=== PATIENT | female | born 1935 | race Caucasian/White ===

== ENCOUNTER 2017-06-07 12:44 | Inpatient (IN) | payer MEDICARE ==
[~2017-06-07] VITALS: Ht 157.5 cm; Wt 114.3 kg
[~2017-06-07 12:44] MED LIST: ACTONEL150 MG PO; ADULT WAL-100 MG/5 M PO; ALLOPURINOL100 MG PO; AMLODIPINE BESYL5 MG PO; ATORVASTATIN CA10 MG PO; BISAC-EVAC10 MG PR; CALCIUM500 MG PO; CARAFATE1 GM/10 ML PO; COUMADIN4 MG PO; FERROUS SULFAT325 M1 PO; FOLIC ACID1 MG PO; GUAIFENESIN600 MG PO; IRON45 MG; K-DUR20 MEQ PO; LASIX40 MG PO; LISINOPRIL5 MG PO; LYRICA150 MG PO; METHOTREXATE2.5 MG PO; METOLAZONE5 MG PO; METOPROLOL SUCC50 MG PO; NORCO 5-325 TA1 EACH PO; NORCO 7.5-3251 EACH PO; PANTOPRAZOLE SO40 MG PO; POTASSIUM CHLO10 ME1 PO; PREDNISONE5 MG PO; XOPENEX0.63 MG/3 INH
[2017-06-07] MEDS ORDERED: SODIUM CHLORIDE 0.9% 500ML 500 ML IV STA (12:47)
[2017-06-07] MEDS ORDERED: ONDANSETRON HCL INJ 2 MG/ML VIAL IV STA (12:47)
--- OUTSIDE RECORDS SUMMARY | 2017-06-07 12:50 | XMS REPORT ---
Author Author [facility] Address Unknown Phone Unavailable Care Team Providers Care Coding Clerk Name Role Phone SUNITHA DRUMMOND Unavailable Unavailable Problems This patient has no known problems. Allergies, Adverse Reactions, Alerts This patient has no known allergies or adverse reactions. Medications This patient has no known medications. Results Test Description Test Time Test Comments Text Results Atomic Results Result Comments CHEST SINGLE (PORTABLE) [address] [address] Patient Name: VIVIANE SANTOS MR #: [id number] : 1935 Age/Sex: 81/F Req #: [id number] Adm Physician: Ordered by: KYRA BANKS MD Report #: [id number] Location: ER Room/Bed: ___ Procedure: [id number] DX/CHEST SINGLE (PORTABLE) Exam Date: 02/21/17 Exam Time: 1200 REPORT STATUS: Signed PROCEDURE : A single AP view of the chest. COMPARISON: [facility], DX , CHEST SINGLE (PORTABLE), 10/16/2013, 5:21. INDICATIONS: COUGH FINDINGS: Lines/tubes: None. Lungs: Lungs are hypoinflated. Minimal bibasilar atelectatic changes. No consolidation or pulmonary edema. Pleura: There is no pleural effusion or pneumothorax. Heart and mediastinum: Central vascular crowding due to low lung volumes. Cardiac silhouette is mildly prominent, likely partly due to AP projection. Tortuous aorta. Bones: No acute bony abnormality. IMPRESSION: 1. minimal bibasilar atelectatic changes and vascular crowding, due to low lung volumes Briseyda Fabian M.D. Dictated by: Briseyda Fabian M.D. on 02/21/2017 at 12:24 Electronically approved by: Briseyda Fabian M.D. on 02/21/2017 at 12:24 Dictated By: BRISEYDA FABIAN MD 1224 Transcribed By: LORENZA on 02/21/17 1224 COPY TO: KYRA BANKS MD
[2017-06-07] MEDS ORDERED: DIATRIZOATE MEGL/DIATRIZOA SOD 30 ML BTL PO ONE (13:01)
[2017-06-07 13:02] LABS: BASOPHILS % 0.3 % (0.0-1.0); EOSINOPHILS # (AUTO) 0.1 (0.0-0.4); EOSINOPHILS % 0.6 % (0.0-6.0); HEMATOCRIT 33.3 % (34.2-44.1); HEMOGLOBIN 10.4 g/dL (12.0-16.0); LYMPHOCYTES # (AUTO) 0.5 (1.0-3.2); LYMPHOCYTES % 3.5 % (18.0-39.1); MEAN CORPUSCULAR HEMOGLOBIN 26.2 pg (28-32); MEAN CORPUSCULAR HGB CONC 31.2 g/dL (31-35); MEAN CORPUSCULAR VOLUME 83.9 fL (81-99); MONOCYTES # (AUTO) 0.2 (0.2-0.8); MONOCYTES % 1.6 % (4.4-11.3); NEUTROPHILS # (AUTO) 13.2 (2.1-6.9); NEUTROPHILS % 93.4 % (38.7-80.0); PLATELET COUNT 236 x10e3/uL (140-360); RED BLOOD COUNT 3.97 x10e6/uL (3.6-5.1); RED CELL DISTRIBUTION WIDTH 20.4 % (11.7-14.4)
[2017-06-07 13:09] LABS: INR 2.72; PROTHROMBIN TIME 27.1 seconds (11.9-14.5)
[2017-06-07 13:10] LABS: PARTIAL THROMBOPLASTIN TIME 52.3 seconds (23.8-35.5)
[2017-06-07 13:19] LABS: ALBUMIN 2.7 g/dL (3.5-5.0); ALBUMIN/GLOBULIN RATIO 0.9 (0.8-2.0); ALKALINE PHOSPHATASE 74 IU/L (40-150); ANION GAP 14.6 mmol/L (8-16); BLOOD UREA NITROGEN 9 mg/dL (7-26); BUN/CREATININE RATIO 10 (6-25); CALCIUM 8.5 mg/dL (8.4-10.2); CARBON DIOXIDE 31 mmol/L (22-29); CHLORIDE 88 mmol/L (98-107); CREATINE KINASE 9 IU/L (29-168); CREATININE, SERUM 0.87 mg/dL (0.57-1.11); EST GLOMERULAR FILTRATION RATE > 60 ML/MIN (60-); GLUCOSE 131 mg/dL (74-118); LIPASE 8 U/L (8-78); POTASSIUM 3.6 mmol/L (3.5-5.1); SODIUM 130 mmol/L (136-145)
[2017-06-07 13:22] LABS: ALANINE AMINOTRANSFERASE < 6 IU/L (0-55)
--- NOTE | 2017-06-07 13:45 | Diagnostic Imaging Report ---
PROCEDURE: A single AP view of the chest. COMPARISON: Chest x-ray 02/21/2017. INDICATIONS: NAUSEA, COUGH FINDINGS: Lines/tubes: None. Lungs: The lungs are mildly hypo-inflated and clear. There is no evidence of pneumonia or pulmonary edema. Pleura: There is no pleural effusion or pneumothorax. Heart and mediastinum: The heart and the mediastinum are unremarkable. Atherosclerotic calcifications in the aorta. Bones: No acute bony abnormality. Partially visualized lower thoracic vertebroplasty material. IMPRESSION: No acute cardiopulmonary disease. Dictated by: Jabier Chen M.D. on 06/07/2017 at 13:44 Electronically approved by: Jabier Chen M.D. on 06/07/2017 at 13:44
[2017-06-07 13:46] LABS: BILIRUBIN,URINE NEGATIVE (NEGATIVE); CLARITY,URINE CLEAR (CLEAR); COLOR,URINE YELLOW (YELLOW); KETONES,URINE 1+ (NEGATIVE); LEUKOCYTE ESTERASE ,URINE NEGATIVE (NEGATIVE); NITRITE,URINE NEGATIVE (NEGATIVE); PROTEIN,URINE DIPSTICK NEGATIVE (NEGATIVE); URINE UROBILINOGEN 0.2 mg/dL (0.2 - 1)
[2017-06-07 14:09] LABS: BACTERIA,URINE MANY /HPF; EPITHELIAL CELLS,URINE MODERATE /LPF; WBC,URINE (MAN) 0-5 /HPF (0-5)
[2017-06-07] MEDS ORDERED: OSELTAMIVIR PHOSPHATE 75 MG CAP PO NR (14:45)
[2017-06-07] MEDS ORDERED: ONDANSETRON HCL INJ 2 MG/ML VIAL IV PRN (15:15)
--- NOTE | 2017-06-07 15:21 | Diagnostic Imaging Report ---
PROCEDURE: CT ABDOMEN AND PELVIS WITH CONTRAST TECHNIQUE: The abdomen and pelvis were scanned utilizing a multidetector helical scanner from the diaphragm to the lesser trochanter after the IV administration of 100 cc of Isovue 370 and the oral administration of Gastroview Coronal and sagittal multiplanar reformations were obtained. COMPARISON: None. INDICATIONS: Nausea, vomiting, diarrhea FOR 2 WEEKS FINDINGS: LOWER THORAX: Subsegmental atelectasis or fibrotic changes in the dependent portions of the lower lobes. Prominent epicardial fat without pleural or pericardial effusion.. HEPATOBILIARY: No focal hepatic lesion or intrahepatic biliary ductal dilatation. Phrygian cap of the gallbladder which is otherwise normal in appearance, without wall thickening or pericholecystic inflammatory change. No radiopaque gallstones. SPLEEN: No splenomegaly. PANCREAS: No focal masses or ductal dilatation. ADRENALS: No adrenal nodules. KIDNEYS/URETERS: No hydronephrosis, calculi, or gross mass lesion. Subcentimeter hypoattenuating lesion projects from the lower pole of left kidney, too small to further characterize though likely to represent a small cyst. PELVIC ORGANS/BLADDER: The urinary bladder is unremarkable. The uterine myometrium is markedly thinned with a distended, fluid-filled endometrial cavity. No adnexal mass. PERITONEUM / RETROPERITONEUM: No free air or fluid. LYMPH NODES: No pelvic sidewall, retroperitoneal, or mesenteric lymphadenopathy. VESSELS: There is atherosclerotic calcification of the abdominal aorta, major branch vessels, and iliac arterial systems. The abdominal aorta is non-aneurysmal. 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 IVC filter lies within the infrarenal IVC, just above the confluence, with strut extending into the right and left common iliac veins. GI TRACT: The large bowel shows no evidence of distention or wall thickening. There are diverticula scattered along the course of the descending and sigmoid colon without evidence of diverticulitis area the appendix is not identified and may have been removed. No right lower quadrant inflammation. 4 cm diverticulum projects from the fourth portion of the duodenum. No small bowel dilatation to suggest obstruction. BONES AND SOFT TISSUES: Diffuse osteopenia. Vertebroplasty cement within the L1 vertebral body. Mild age-indeterminate anterior compression fractures of T12, L2, and L3, each with approximately 20% loss of anterior height. Healed fracture deformities of the right lateral ninth and 10th ribs.. IMPRESSION: No acute intra-abdominal or pelvic CT abnormalities. Large bowel diverticulosis without evidence of diverticulitis. Atherosclerotic vascular disease with an incidentally noted 1.6 cm peripherally calcified splenic artery aneurysm. CT angiography of the abdomen is suggested in one year to assess for stability. Atrophic uterus with distended, fluid-filled endometrial cavity may be a consequence of cervical stenosis. Diffuse osteopenia with multiple age indeterminate, though likely chronic anterior compression fractures of the lower thoracic and upper lumbar spine as above. Dictated by: Michael Rivera M.D. on 06/07/2017 at 15:20 Electronically approved by: Michael Rivera M.D. on 06/07/2017 at 15:20
[2017-06-07] MEDS ORDERED: IOPAMIDOL 370 MG/ML 200 ML INFUS..BTL INJ ONE (15:39)
[2017-06-07] MEDS ORDERED: SODIUM CHLORIDE 0.9% 50ML 50 ML ONE (15:39)
[2017-06-07 19:50] VITALS: BP 128/58
[2017-06-07] MEDS: GUAIFENESIN 600 MG TAB PO SCH (20:52)
[2017-06-07] MEDS: GUAIFENESIN/DEXTROMETHORPHAN LIQD 5 ML UDC NG PRN (20:52)
[2017-06-07] MEDS: ATORVASTATIN 10 MG TAB PO SCH (21:04)
[2017-06-08] VITALS (8 sets, daily range): BP systolic 110–149; BP diastolic 57–107
[2017-06-08] MEDS: SODIUM CHLORIDE 0.9% 1000ML 1,000 ML IV SCH ×3 (01:20→22:00)
[2017-06-08] MEDS: GUAIFENESIN/DEXTROMETHORPHAN LIQD 5 ML UDC NG PRN (02:26)
[2017-06-08] MEDS: OSELTAMIVIR PHOSPHATE 75 MG CAP PO SCH ×3 (05:28→17:56)
[2017-06-08] MEDS: AMLODIPINE BESYLATE 5 MG TAB PO SCH ×2 (05:29→08:05)
[2017-06-08 06:52] LABS: ANION GAP 14.4 mmol/L (8-16); BLOOD UREA NITROGEN 10 mg/dL (7-26); BUN/CREATININE RATIO 12 (6-25); CALCIUM 8.4 mg/dL (8.4-10.2); CARBON DIOXIDE 31 mmol/L (22-29); CHLORIDE 90 mmol/L (98-107); CREATININE, SERUM 0.82 mg/dL (0.57-1.11); EST GLOMERULAR FILTRATION RATE > 60 ML/MIN (60-); GLUCOSE 98 mg/dL (74-118); POTASSIUM 3.4 mmol/L (3.5-5.1); SODIUM 132 mmol/L (136-145)
[2017-06-08] MEDS: FUROSEMIDE 40 MG TAB PO SCH ×2 (08:39→18:24)
[2017-06-08] MEDS: POTASSIUM CHLORIDE 10 MEQ TABCR PO SCH ×2 (08:39→18:24)
[2017-06-08] MEDS: GUAIFENESIN 600 MG TAB PO SCH ×2 (08:39→20:50)
[2017-06-08] MEDS: FERROUS SULFATE 325 MG TAB PO SCH ×2 (08:39→18:24)
[2017-06-08] MEDS: FOLIC ACID 1 MG TAB PO SCH (08:39)
[2017-06-08] MEDS: METOLAZONE 5 MG TAB PO SCH (08:40)
[2017-06-08] MEDS: PREGABALIN 75 MG CAP PO SCH ×2 (08:40→17:56)
[2017-06-08] MEDS: HYDROCODONE/APAP 5MG-325MG TAB PO SCH (08:40)
[2017-06-08] MEDS: OYST-CAL-D 500MG TABLET PO SCH (08:40)
[2017-06-08] MEDS: PANTOPRAZOLE SOD 40 MG TABEC PO SCH (08:40)
[2017-06-08] MEDS: PREDNISONE 5 MG TAB PO SCH (08:40)
[2017-06-08] MEDS: ALLOPURINOL 100 MG TAB PO SCH (08:40)
[2017-06-08] MEDS ORDERED: CALCIUM CARBONATE 500 MG PO SCH (09:00)
[2017-06-08] MEDS ORDERED: NON-FORMULARY MEDICATION (Pregabalin (Lyrica) 150 MG) PO SCH (09:00)
[2017-06-08] MEDS ORDERED: NON-FORMULARY MEDICATION (Warfarin Sodium (Coumadin) 4 MG) PO SCH (09:00)
[2017-06-08] MEDS ORDERED: HYDROCODONE/APAP 5MG-325MG TAB PO SCH (09:00)
[2017-06-08] MEDS ORDERED: DEXTROSE 50% SYRINGE 50 ML IV PRN (10:45)
[2017-06-08] MEDS: INSULIN LISPRO 100 UNIT/1 ML 3ML VIAL SQ SCH ×3 (11:30→20:50)
[2017-06-08] MEDS: LEVALBUTEROL HCL SOLN NEBU 0.63 MG/3 ML NEB INH SCH ×2 (13:00→20:40)
--- NOTE | 2017-06-08 13:40 | Diagnostic Imaging Report ---
PROCEDURE: CHEST SINGLE (PORTABLE) 1236 hrs. COMPARISON: Chest x-ray 06/07/17 INDICATIONS: COUGH FINDINGS: LUNGS: The lungs are diffusely hyperinflated consistent with small airways disease. Diffuse bronchial wall thickening is stable. Pulmonary vascular markings are normal. No mass or infiltrate. PLEURA: No effusions or pneumothorax. HEART \T\ MEDIASTINUM: The heart is normal in size. Aortic ectasia is stable. BONES \T\ SOFT TISSUES: Stable. CONCLUSION: No new cardiopulmonary process. Stable pulmonary hyperinflation and bronchial wall thickening suggestive of chronic bronchitis. Dictated by: Roman Oliveira M.D. on 06/08/2017 at 13:41 Electronically approved by: Roman Oliveira M.D. on 06/08/2017 at 13:41
[2017-06-08] MEDS: NYSTATIN SUSPENSION 5 ML UDC PO SCH ×2 (15:45→20:50)
[2017-06-08 18:04] LABS: INR 2.77; PROTHROMBIN TIME 27.5 seconds (11.9-14.5)
[2017-06-08] MEDS: WARFARIN SOD 2 MG TAB PO SCH (18:40)
[2017-06-08] MEDS: ATORVASTATIN 10 MG TAB PO SCH (20:50)
[2017-06-08] MEDS ORDERED: ATORVASTATIN 10 MG TAB PO SCH (21:00)
[2017-06-09] VITALS (8 sets, daily range): BP systolic 101–130; BP diastolic 58–64
[2017-06-09] MEDS: LEVALBUTEROL HCL SOLN NEBU 0.63 MG/3 ML NEB INH SCH ×4 (02:10→20:15)
[2017-06-09] MEDS: INSULIN LISPRO 100 UNIT/1 ML 3ML VIAL SQ SCH ×4 (07:30→20:50)
[2017-06-09] MEDS: GUAIFENESIN 600 MG TAB PO SCH ×2 (09:03→20:50)
[2017-06-09] MEDS: FERROUS SULFATE 325 MG TAB PO SCH ×2 (09:03→16:33)
[2017-06-09] MEDS: FOLIC ACID 1 MG TAB PO SCH (09:03)
[2017-06-09] MEDS: OYST-CAL-D 500MG TABLET PO SCH (09:08)
[2017-06-09] MEDS: FUROSEMIDE 40 MG TAB PO SCH ×2 (09:08→16:33)
[2017-06-09] MEDS: POTASSIUM CHLORIDE 10 MEQ TABCR PO SCH (09:08)
[2017-06-09] MEDS: PREDNISONE 5 MG TAB PO SCH (09:08)
[2017-06-09] MEDS: PREGABALIN 75 MG CAP PO SCH ×2 (09:08→16:33)
[2017-06-09] MEDS: OSELTAMIVIR PHOSPHATE 75 MG CAP PO SCH ×2 (09:08→16:33)
[2017-06-09] MEDS: PANTOPRAZOLE SOD 40 MG TABEC PO SCH (09:08)
[2017-06-09] MEDS: ALLOPURINOL 100 MG TAB PO SCH (09:09)
[2017-06-09] MEDS: METOLAZONE 5 MG TAB PO SCH (09:09)
[2017-06-09] MEDS: HYDROCODONE/APAP 5MG-325MG TAB PO SCH (09:28)
[2017-06-09] MEDS: NYSTATIN SUSPENSION 5 ML UDC PO SCH ×3 (09:28→20:50)
[2017-06-09] MEDS: AMLODIPINE BESYLATE 5 MG TAB PO SCH (09:28)
[2017-06-09 09:37] LABS: BASOPHILS % 0.1 % (0.0-1.0); EOSINOPHILS # (AUTO) 0.2 (0.0-0.4); HEMATOCRIT 32.4 % (34.2-44.1); LYMPHOCYTES # (AUTO) 0.7 (1.0-3.2); LYMPHOCYTES % 8.2 % (18.0-39.1); MEAN CORPUSCULAR HEMOGLOBIN 26.6 pg (28-32); MEAN CORPUSCULAR HGB CONC 30.9 g/dL (31-35); MEAN CORPUSCULAR VOLUME 86.2 fL (81-99); MONOCYTES # (AUTO) 0.5 (0.2-0.8); MONOCYTES % 6.2 % (4.4-11.3); NEUTROPHILS # (AUTO) 6.5 (2.1-6.9); NEUTROPHILS % 81.6 % (38.7-80.0); PLATELET COUNT 229 x10e3/uL (140-360); RED BLOOD COUNT 3.76 x10e6/uL (3.6-5.1); RED CELL DISTRIBUTION WIDTH 20.2 % (11.7-14.4)
[2017-06-09 09:46] LABS: INR 2.89; PROTHROMBIN TIME 28.4 seconds (11.9-14.5)
[2017-06-09 09:52] LABS: CALCIUM 8.1 mg/dL (8.4-10.2)
[2017-06-09 10:20] LABS: ANION GAP 16.5 mmol/L (8-16)
[2017-06-09 10:22] LABS: POTASSIUM 2.5 mmol/L (3.5-5.1)
[2017-06-09] MEDS ORDERED: POTASSIUM CHLORIDE 20 MEQ TAB CR PO STA (11:07)
[2017-06-09] MEDS: POTASSIUM CHLORIDE 20 MEQ TAB CR PO SCH ×5 (12:14→20:18)
[2017-06-09] MEDS: SODIUM CHLORIDE 0.9% 1000ML 1,000 ML IV SCH ×2 (13:18→16:33)
[2017-06-09] MEDS: WARFARIN SOD 2 MG TAB PO SCH (16:33)
[2017-06-09] MEDS: ATORVASTATIN 10 MG TAB PO SCH (20:50)
[2017-06-10] VITALS (8 sets, daily range): BP systolic 110–131; BP diastolic 53–84
[2017-06-10] MEDS: LEVALBUTEROL HCL SOLN NEBU 0.63 MG/3 ML NEB INH SCH ×3 (06:15→20:40)
[2017-06-10] MEDS: SODIUM CHLORIDE 0.9% 1000ML 1,000 ML IV SCH (06:23)
[2017-06-10 06:51] LABS: ANION GAP 11.8 mmol/L (8-16); CALCIUM 8.2 mg/dL (8.4-10.2); CREATININE, SERUM 1.02 mg/dL (0.57-1.11)
[2017-06-10 06:56] LABS: POTASSIUM 2.8 mmol/L (3.5-5.1)
[2017-06-10] MEDS: INSULIN LISPRO 100 UNIT/1 ML 3ML VIAL SQ SCH ×4 (07:30→20:58)
[2017-06-10] MEDS ORDERED: POTASSIUM CHLORIDE 10 MEQ TABCR PO SCH (09:00)
[2017-06-10] MEDS: AMLODIPINE BESYLATE 5 MG TAB PO SCH (09:58)
[2017-06-10] MEDS: GUAIFENESIN 600 MG TAB PO SCH ×2 (09:58→20:30)
[2017-06-10] MEDS: FOLIC ACID 1 MG TAB PO SCH (09:58)
[2017-06-10] MEDS: FUROSEMIDE 40 MG TAB PO SCH ×2 (09:58→17:07)
[2017-06-10] MEDS: FERROUS SULFATE 325 MG TAB PO SCH ×2 (09:58→17:09)
[2017-06-10] MEDS: PREGABALIN 75 MG CAP PO SCH ×2 (09:58→17:08)
[2017-06-10] MEDS: HYDROCODONE/APAP 5MG-325MG TAB PO SCH ×2 (09:58→21:11)
[2017-06-10] MEDS: METOLAZONE 5 MG TAB PO SCH (09:59)
[2017-06-10] MEDS: ALLOPURINOL 100 MG TAB PO SCH (09:59)
[2017-06-10] MEDS: OSELTAMIVIR PHOSPHATE 75 MG CAP PO SCH ×2 (09:59→17:08)
[2017-06-10] MEDS: PREDNISONE 5 MG TAB PO SCH (09:59)
[2017-06-10] MEDS: NYSTATIN SUSPENSION 5 ML UDC PO SCH ×3 (09:59→21:00)
[2017-06-10] MEDS: PANTOPRAZOLE SOD 40 MG TABEC PO SCH (09:59)
[2017-06-10] MEDS: OYST-CAL-D 500MG TABLET PO SCH (09:59)
[2017-06-10] MEDS: CEFEPIME HCL 1 GM VIAL IV SCH ×2 (10:00→20:58)
[2017-06-10] MEDS: POTASSIUM CHLORIDE 10 MEQ TABCR PO SCH ×3 (13:40→20:58)
[2017-06-10 16:34] LABS: INR 3.27; PROTHROMBIN TIME 31.3 seconds (11.9-14.5)
[2017-06-10] MEDS: WARFARIN SOD 2 MG TAB PO SCH (17:00)
[2017-06-10] MEDS: GUAIFENESIN/DEXTROMETHORPHAN LIQD 5 ML UDC NG PRN (17:18)
[2017-06-10] MEDS: ATORVASTATIN 10 MG TAB PO SCH (21:00)
[2017-06-11] VITALS: BP 113/55
[2017-06-11] MEDS: LEVALBUTEROL HCL SOLN NEBU 0.63 MG/3 ML NEB INH SCH ×4 (01:18→19:34)
[2017-06-11 04:00] VITALS: BP 126/60
[2017-06-11] MEDS: POTASSIUM CHLORIDE 10 MEQ TABCR PO SCH ×3 (04:38→17:36)
[2017-06-11] MEDS: INSULIN LISPRO 100 UNIT/1 ML 3ML VIAL SQ SCH ×4 (07:30→21:00)
[2017-06-11 07:44] LABS: BASOPHILS % 0.2 % (0.0-1.0); EOSINOPHILS # (AUTO) 0.8 (0.0-0.4); EOSINOPHILS % 5.9 % (0.0-6.0); HEMATOCRIT 34.4 % (34.2-44.1); HEMOGLOBIN 10.6 g/dL (12.0-16.0); LYMPHOCYTES # (AUTO) 0.7 (1.0-3.2); LYMPHOCYTES % 5.3 % (18.0-39.1); MEAN CORPUSCULAR HEMOGLOBIN 26.3 pg (28-32); MEAN CORPUSCULAR HGB CONC 30.8 g/dL (31-35); MEAN CORPUSCULAR VOLUME 85.4 fL (81-99); MONOCYTES # (AUTO) 0.7 (0.2-0.8); MONOCYTES % 5.6 % (4.4-11.3); NEUTROPHILS # (AUTO) 10.6 (2.1-6.9); NEUTROPHILS % 82.4 % (38.7-80.0); PLATELET COUNT 233 x10e3/uL (140-360); RED BLOOD COUNT 4.03 x10e6/uL (3.6-5.1); RED CELL DISTRIBUTION WIDTH 20.7 % (11.7-14.4)
[2017-06-11 07:54] LABS: INR 2.89; PROTHROMBIN TIME 28.4 seconds (11.9-14.5)
[2017-06-11 08:06] LABS: ANION GAP 16.6 mmol/L (8-16); CALCIUM 8.3 mg/dL (8.4-10.2); CREATININE, SERUM 1.04 mg/dL (0.57-1.11)
[2017-06-11 08:10] LABS: POTASSIUM 2.6 mmol/L (3.5-5.1)
[2017-06-11] MEDS ORDERED: POTASSIUM CHLORIDE 20 MEQ TAB CR PO NR (08:45)
[2017-06-11] MEDS ORDERED: MAGNESIUM SULFATE 2GM/50ML 100 ML IV ONE (09:00)
[2017-06-11] MEDS: FUROSEMIDE 40 MG TAB PO SCH ×2 (09:17→17:36)
[2017-06-11] MEDS: OSELTAMIVIR PHOSPHATE 75 MG CAP PO SCH ×2 (09:17→17:36)
[2017-06-11] MEDS: HYDROCODONE/APAP 5MG-325MG TAB PO SCH ×2 (09:17→21:37)
[2017-06-11] MEDS: PANTOPRAZOLE SOD 40 MG TABEC PO SCH (09:17)
[2017-06-11] MEDS: PREDNISONE 5 MG TAB PO SCH (09:17)
[2017-06-11] MEDS: OYST-CAL-D 500MG TABLET PO SCH (09:17)
[2017-06-11] MEDS: FOLIC ACID 1 MG TAB PO SCH (09:17)
[2017-06-11] MEDS: ALLOPURINOL 100 MG TAB PO SCH (09:17)
[2017-06-11] MEDS: METOLAZONE 5 MG TAB PO SCH (09:17)
[2017-06-11] MEDS: PREGABALIN 75 MG CAP PO SCH ×2 (09:17→17:36)
[2017-06-11] MEDS: AMLODIPINE BESYLATE 5 MG TAB PO SCH (09:17)
[2017-06-11] MEDS: CEFEPIME HCL 1 GM VIAL IV SCH ×2 (09:17→21:32)
[2017-06-11] MEDS: GUAIFENESIN 600 MG TAB PO SCH ×2 (09:17→21:32)
[2017-06-11] MEDS: NYSTATIN SUSPENSION 5 ML UDC PO SCH ×3 (09:17→21:32)
[2017-06-11] MEDS: FERROUS SULFATE 325 MG TAB PO SCH ×2 (09:17→17:36)
[2017-06-11] MEDS ORDERED: POTASSIUM CHLORIDE 20 MEQ TAB CR PO SCH (10:30)
[2017-06-11 11:17] VITALS: BP 140/80
[2017-06-11] MEDS ORDERED: SODIUM CHLORIDE 0.9% 250ML 250 ML ONE (11:38)
[2017-06-11] MEDS ORDERED: VANCOMYCIN 1GM/NS 250 ML 250 ML IV SCH (14:30)
[2017-06-11] MEDS ORDERED: FLUCONAZOLE 200 MG/100 ML 100 ML IV SCH (14:45)
[2017-06-11] MEDS: FLUCONAZOLE 200 MG/100 ML 100 ML IV SCH (16:00)
[2017-06-11] MEDS: VANCOMYCIN 1GM/NS 250 ML 250 ML IV SCH (16:00)
--- NOTE | 2017-06-11 16:33 | Diagnostic Imaging Report ---
EXAMINATION: CHEST SINGLE (PORTABLE) INDICATION: \S\influenza with bronchitis \S\[id number] \S\1535 \S\Y COMPARISON: Chest radiograph from 06/08/2017 FINDINGS: AP view TUBES and LINES: None. LUNGS: No lung volumes. Bibasilar atelectasis. There is no evidence of pneumonia or pulmonary edema. PLEURA: No pleural effusion or pneumothorax. HEART AND MEDIASTINUM: The cardiomediastinal silhouette is unremarkable. Mild atherosclerotic calcifications of the aortic arch. BONES AND SOFT TISSUES: No acute osseous lesion. Soft tissues are unremarkable. UPPER ABDOMEN: No free air under the diaphragm. IMPRESSION: Stable bibasilar atelectasis. Signed by: Dr. Sara Torrez M.D. on 06/11/2017 4:30 PM
[2017-06-11] MEDS ORDERED: POTASSIUM CHLORIDE 10 MEQ TABCR PO SCH (17:00)
[2017-06-11] MEDS: NYSTATIN 15 GM POWDER UD BTL TOP SCH (17:36)
[2017-06-11] MEDS: WARFARIN SOD 2 MG TAB PO SCH (17:36)
[2017-06-11 20:00] VITALS: BP 106/60
[2017-06-11] MEDS: ATORVASTATIN 10 MG TAB PO SCH (21:32)
[2017-06-12] VITALS: BP 104/53
[2017-06-12] MEDS: LEVALBUTEROL HCL SOLN NEBU 0.63 MG/3 ML NEB INH SCH ×4 (01:23→19:32)
[2017-06-12] MEDS: VANCOMYCIN 1GM/NS 250 ML 250 ML IV SCH ×2 (03:22→17:00)
[2017-06-12 04:00] VITALS: BP 172/66
[2017-06-12 06:09] VITALS: BP 113/58
[2017-06-12] MEDS: INSULIN LISPRO 100 UNIT/1 ML 3ML VIAL SQ SCH ×4 (07:30→21:00)
[2017-06-12 07:47] LABS: BASOPHILS % 0.2 % (0.0-1.0); EOSINOPHILS # (AUTO) 0.7 (0.0-0.4); EOSINOPHILS % 5.7 % (0.0-6.0); HEMATOCRIT 32.3 % (34.2-44.1); LYMPHOCYTES # (AUTO) 0.8 (1.0-3.2); LYMPHOCYTES % 6.5 % (18.0-39.1); MEAN CORPUSCULAR HEMOGLOBIN 26.7 pg (28-32); MEAN CORPUSCULAR VOLUME 86.1 fL (81-99); MONOCYTES # (AUTO) 0.8 (0.2-0.8); MONOCYTES % 7.1 % (4.4-11.3); NEUTROPHILS # (AUTO) 9.3 (2.1-6.9); NEUTROPHILS % 79.9 % (38.7-80.0); PLATELET COUNT 230 x10e3/uL (140-360); RED BLOOD COUNT 3.75 x10e6/uL (3.6-5.1); RED CELL DISTRIBUTION WIDTH 20.7 % (11.7-14.4)
[2017-06-12 08:13] LABS: ALBUMIN 2.7 g/dL (3.5-5.0); ALBUMIN/GLOBULIN RATIO 0.9 (0.8-2.0); ANION GAP 15.6 mmol/L (8-16); CALCIUM 8.6 mg/dL (8.4-10.2); CREATININE, SERUM 1.06 mg/dL (0.57-1.11)
[2017-06-12 08:17] LABS: POTASSIUM 2.6 mmol/L (3.5-5.1)
[2017-06-12] MEDS: GUAIFENESIN 600 MG TAB PO SCH ×2 (08:30→21:55)
[2017-06-12 09:10] LABS: INR 2.72; PROTHROMBIN TIME 27.1 seconds (11.9-14.5)
[2017-06-12] MEDS: OSELTAMIVIR PHOSPHATE 75 MG CAP PO SCH ×2 (09:34→17:27)
[2017-06-12] MEDS: PANTOPRAZOLE SOD 40 MG TABEC PO SCH (09:34)
[2017-06-12] MEDS: FERROUS SULFATE 325 MG TAB PO SCH ×2 (09:34→17:27)
[2017-06-12] MEDS: NYSTATIN SUSPENSION 5 ML UDC PO SCH ×3 (09:34→21:00)
[2017-06-12] MEDS: OYST-CAL-D 500MG TABLET PO SCH (09:34)
[2017-06-12] MEDS: NYSTATIN 15 GM POWDER UD BTL TOP SCH ×2 (09:34→17:27)
[2017-06-12] MEDS: HYDROCODONE/APAP 5MG-325MG TAB PO SCH (09:34)
[2017-06-12] MEDS: POTASSIUM CHLORIDE 10 MEQ TABCR PO SCH ×2 (09:34→17:00)
[2017-06-12] MEDS: PREGABALIN 75 MG CAP PO SCH ×2 (09:34→17:27)
[2017-06-12] MEDS: FUROSEMIDE 40 MG TAB PO SCH ×2 (09:34→17:27)
[2017-06-12] MEDS: CEFEPIME HCL 1 GM VIAL IV SCH ×2 (09:34→21:00)
[2017-06-12] MEDS: ALLOPURINOL 100 MG TAB PO SCH (09:34)
[2017-06-12] MEDS: FOLIC ACID 1 MG TAB PO SCH (09:34)
[2017-06-12] MEDS: AMLODIPINE BESYLATE 5 MG TAB PO SCH (09:34)
[2017-06-12] MEDS: PREDNISONE 5 MG TAB PO SCH (09:34)
[2017-06-12] MEDS: METOLAZONE 5 MG TAB PO SCH (09:34)
[2017-06-12] MEDS ORDERED: POTASSIUM CHLORIDE 20MEQ/100ML 200 ML IV ONE (10:15)
[2017-06-12] MEDS ORDERED: POTASSIUM CHLORIDE 20 MEQ TAB CR PO NR ×3 (10:30→17:00)
[2017-06-12] MEDS ORDERED: POTASSIUM CHLORIDE 20 MEQ in SODIUM CHLORIDE 0.9% 90 ML IV NR (12:00)
[2017-06-12 12:38] VITALS: BP 101/71
[2017-06-12] MEDS ORDERED: LORAZEPAM 0.5 MG TAB PO PRN (13:30)
[2017-06-12] MEDS ORDERED: POTASSIUM CHLORIDE 20 MEQ TAB CR PO STA (13:52)
[2017-06-12] MEDS ORDERED: KETOROLAC TROMETHAMINE 30 MG/ML VIAL IV NR (14:00)
[2017-06-12] MEDS: FLUCONAZOLE 200 MG/100 ML 100 ML IV SCH (16:00)
[2017-06-12] MEDS: WARFARIN SOD 2 MG TAB PO SCH (17:27)
[2017-06-12 17:40] VITALS: BP 105/59
[2017-06-12 20:00] VITALS: BP 92/55
[2017-06-12] MEDS: ATORVASTATIN 10 MG TAB PO SCH (21:00)
[2017-06-13] VITALS (8 sets, daily range): BP systolic 97–118; BP diastolic 52–72
[2017-06-13] MEDS: LEVALBUTEROL HCL SOLN NEBU 0.63 MG/3 ML NEB INH SCH ×4 (01:30→19:38)
[2017-06-13] MEDS: VANCOMYCIN 1GM/NS 250 ML 250 ML IV SCH ×2 (05:04→17:06)
[2017-06-13 06:43] LABS: BASOPHILS % 0.2 % (0.0-1.0); EOSINOPHILS % 6.3 % (0.0-6.0); HEMATOCRIT 30.2 % (34.2-44.1); HEMOGLOBIN 9.4 g/dL (12.0-16.0); LYMPHOCYTES # (AUTO) 0.9 (1.0-3.2); LYMPHOCYTES % 5.7 % (18.0-39.1); MEAN CORPUSCULAR HEMOGLOBIN 26.3 pg (28-32); MEAN CORPUSCULAR HGB CONC 31.1 g/dL (31-35); MEAN CORPUSCULAR VOLUME 84.6 fL (81-99); MONOCYTES # (AUTO) 1.3 (0.2-0.8); MONOCYTES % 8.2 % (4.4-11.3); NEUTROPHILS # (AUTO) 12.3 (2.1-6.9); NEUTROPHILS % 78.8 % (38.7-80.0); PLATELET COUNT 218 x10e3/uL (140-360); RED BLOOD COUNT 3.57 x10e6/uL (3.6-5.1); RED CELL DISTRIBUTION WIDTH 20.4 % (11.7-14.4)
[2017-06-13 07:13] LABS: ALBUMIN 2.5 g/dL (3.5-5.0); ALBUMIN/GLOBULIN RATIO 0.8 (0.8-2.0); ANION GAP 15.2 mmol/L (8-16); CALCIUM 8.7 mg/dL (8.4-10.2); CREATININE, SERUM 1.1 mg/dL (0.57-1.11); POTASSIUM 3.2 mmol/L (3.5-5.1)
[2017-06-13] MEDS: INSULIN LISPRO 100 UNIT/1 ML 3ML VIAL SQ SCH ×4 (07:30→21:00)
[2017-06-13 08:12] LABS: INR 3.26; PROTHROMBIN TIME 31.2 seconds (11.9-14.5)
[2017-06-13] MEDS: POTASSIUM CHLORIDE 10 MEQ TABCR PO SCH ×2 (08:56→17:45)
[2017-06-13] MEDS: FERROUS SULFATE 325 MG TAB PO SCH ×2 (08:56→17:45)
[2017-06-13] MEDS: PANTOPRAZOLE SOD 40 MG TABEC PO SCH (08:56)
[2017-06-13] MEDS: NYSTATIN SUSPENSION 5 ML UDC PO SCH ×3 (08:56→22:04)
[2017-06-13] MEDS: AMLODIPINE BESYLATE 5 MG TAB PO SCH (08:56)
[2017-06-13] MEDS: GUAIFENESIN 600 MG TAB PO SCH ×2 (08:56→22:04)
[2017-06-13] MEDS: OSELTAMIVIR PHOSPHATE 75 MG CAP PO SCH ×2 (08:56→17:45)
[2017-06-13] MEDS: ALLOPURINOL 100 MG TAB PO SCH (08:56)
[2017-06-13] MEDS: PREGABALIN 75 MG CAP PO SCH ×2 (08:56→17:45)
[2017-06-13] MEDS: FUROSEMIDE 40 MG TAB PO SCH ×2 (08:56→17:45)
[2017-06-13] MEDS: FOLIC ACID 1 MG TAB PO SCH (08:56)
[2017-06-13] MEDS: CEFEPIME HCL 1 GM VIAL IV SCH ×2 (08:56→22:04)
[2017-06-13] MEDS: OYST-CAL-D 500MG TABLET PO SCH (08:56)
[2017-06-13] MEDS: PREDNISONE 5 MG TAB PO SCH (08:56)
[2017-06-13] MEDS: METOLAZONE 5 MG TAB PO SCH (08:56)
[2017-06-13] MEDS: HYDROCODONE/APAP 5MG-325MG TAB PO SCH ×2 (08:57→09:00)
[2017-06-13] MEDS: NYSTATIN 15 GM POWDER UD BTL TOP SCH ×2 (08:57→17:45)
[2017-06-13] MEDS: FLUCONAZOLE 200 MG/100 ML 100 ML IV SCH (15:15)
[2017-06-13] MEDS: WARFARIN SOD 2 MG TAB PO SCH (17:45)
[2017-06-13] MEDS: ATORVASTATIN 10 MG TAB PO SCH (22:04)
[2017-06-14] VITALS: BP 96/58
[2017-06-14] MEDS: LEVALBUTEROL HCL SOLN NEBU 0.63 MG/3 ML NEB INH SCH ×3 (01:17→13:35)
[2017-06-14] MEDS: DIPHENHYDRAMINE HCL 25 MG CAP PO PRN ×2 (02:01→08:12)
[2017-06-14] MEDS: VANCOMYCIN 1GM/NS 250 ML 250 ML IV SCH (04:26)
[2017-06-14] MEDS: INSULIN LISPRO 100 UNIT/1 ML 3ML VIAL SQ SCH ×2 (07:30→11:30)
[2017-06-14 08:00] VITALS: BP 158/72
[2017-06-14] MEDS: FERROUS SULFATE 325 MG TAB PO SCH (08:12)
[2017-06-14] MEDS: CEFEPIME HCL 1 GM VIAL IV SCH (08:12)
[2017-06-14] MEDS: POTASSIUM CHLORIDE 10 MEQ TABCR PO SCH (08:12)
[2017-06-14] MEDS: PREGABALIN 75 MG CAP PO SCH (08:12)
[2017-06-14] MEDS: GUAIFENESIN 600 MG TAB PO SCH (08:12)
[2017-06-14] MEDS: FOLIC ACID 1 MG TAB PO SCH (08:12)
[2017-06-14] MEDS: NYSTATIN 15 GM POWDER UD BTL TOP SCH (08:12)
[2017-06-14] MEDS: OSELTAMIVIR PHOSPHATE 75 MG CAP PO SCH (08:12)
[2017-06-14] MEDS: FUROSEMIDE 40 MG TAB PO SCH (08:12)
[2017-06-14] MEDS: NYSTATIN SUSPENSION 5 ML UDC PO SCH (08:12)
[2017-06-14] MEDS: ALLOPURINOL 100 MG TAB PO SCH (08:12)
[2017-06-14] MEDS: PANTOPRAZOLE SOD 40 MG TABEC PO SCH (08:12)
[2017-06-14] MEDS: PREDNISONE 5 MG TAB PO SCH (08:12)
[2017-06-14] MEDS: AMLODIPINE BESYLATE 5 MG TAB PO SCH (08:12)
[2017-06-14] MEDS: OYST-CAL-D 500MG TABLET PO SCH (08:12)
[2017-06-14] MEDS: METOLAZONE 5 MG TAB PO SCH (08:12)
[2017-06-14 10:14] VITALS: BP 158/72
[2017-06-14 12:00] VITALS: BP 121/50
== END 2017-06-14 15:24 | DRG 871 ==
LOC: ER 12:44 → ERHOLD 17:04 → IMCU 18:23 → OBSVTOIN 06-10 08:56 → MED/SURG3 06-10 17:38
DX: A41.9 Sepsis, unspecified organism (principal); J11.00 Influenza due to unidentified influenza virus with unspecified type of pneumonia; I11.0 Hypertensive heart disease with heart failure; J18.9 Pneumonia, unspecified organism; Z68.42 Body mass index [BMI] 45.0-49.9, adult; N39.0 Urinary tract infection, site not specified; I50.9 Heart failure, unspecified; E66.01 Morbid (severe) obesity due to excess calories; E87.6 Hypokalemia; B96.20 Unspecified Escherichia coli [E. coli] as the cause of diseases classified elsewhere; Z86.718 Personal history of other venous thrombosis and embolism; Z79.01 Long term (current) use of anticoagulants
CPT/HCPCS: 36415; 71045; 74177; 80048; 80053; 80202; 81001; 82550; 82553; 82948; 83605; 83690; 83735; 83880; 84484; 85025; 85610; 85730; 87040; 87086; 87186; 87400; 93005; 94640; 99284; G0378; J0692; J1450; J1885; J2405; J3370; J3480; J7030; J7040; J7050; J7512; Q9967

== ENCOUNTER 2018-01-04 09:32 | Inpatient (IN) | payer MEDICARE ==
[~2018-01-04] VITALS: Ht 157.5 cm; Wt 92.8 kg
[2018-01-04] VITALS (20 sets, daily range): BP systolic 90–128; BP diastolic 41–66
[2018-01-04] MEDS ORDERED: ACETAMINOPHEN 1000 MG/100 ML IV STA (09:42)
[2018-01-04] MEDS ORDERED: IPRATROPIUM BROMIDE 0.02% 2.5 ML NEB NEB ONE ×2 (09:45→11:15)
[2018-01-04] MEDS ORDERED: SODIUM CHLORIDE 0.9% 1000ML 1,500 ML IV ONE (09:45)
[2018-01-04 10:03] LABS: BASOPHILS # (AUTO) 0.1 (0.0-0.1); BASOPHILS % 0.3 % (0.0-1.0); EOSINOPHILS # (AUTO) 0.3 (0.0-0.4); EOSINOPHILS % 1.4 % (0.0-6.0); HEMATOCRIT 35.1 % (34.2-44.1); LYMPHOCYTES # (AUTO) 1.4 (1.0-3.2); LYMPHOCYTES % 7.8 % (18.0-39.1); MEAN CORPUSCULAR HEMOGLOBIN 30.4 pg (28-32); MEAN CORPUSCULAR HGB CONC 31.3 g/dL (31-35); MONOCYTES # (AUTO) 1.4 (0.2-0.8); MONOCYTES % 8.1 % (4.4-11.3); NEUTROPHILS # (AUTO) 14.2 (2.1-6.9); NEUTROPHILS % 81.5 % (38.7-80.0); PLATELET COUNT 171 x10e3/uL (140-360); RED BLOOD COUNT 3.62 x10e6/uL (3.6-5.1); RED CELL DISTRIBUTION WIDTH 16.7 % (11.7-14.4)
[2018-01-04 10:20] LABS: ALANINE AMINOTRANSFERASE 19 IU/L (0-55); ALBUMIN 2.9 g/dL (3.5-5.0); ALBUMIN/GLOBULIN RATIO 0.9 (0.8-2.0); ALKALINE PHOSPHATASE 110 IU/L (40-150); ANION GAP 14.4 mmol/L (8-16); BLOOD UREA NITROGEN 9 mg/dL (7-26); BUN/CREATININE RATIO 11 (6-25); CALCIUM 9.6 mg/dL (8.4-10.2); CARBON DIOXIDE 31 mmol/L (22-29); CHLORIDE 96 mmol/L (98-107); CREATININE, SERUM 0.79 mg/dL (0.57-1.11); EST GLOMERULAR FILTRATION RATE > 60 ML/MIN (60-); GLUCOSE 115 mg/dL (74-118); MAGNESIUM 1.9 MG/DL (1.3-2.1); PHOSPHORUS 3.3 MG/DL (2.3-4.7); POTASSIUM 3.4 mmol/L (3.5-5.1); SODIUM 138 mmol/L (136-145)
[2018-01-04 10:26] LABS: CLARITY,URINE CLOUDY (CLEAR); COLOR,URINE AMBER (YELLOW); LEUKOCYTE ESTERASE ,URINE 1+ (NEGATIVE)
[2018-01-04 10:27] LABS: BILIRUBIN,URINE 1+ (NEGATIVE); KETONES,URINE TRACE (NEGATIVE); NITRITE,URINE NEGATIVE (NEGATIVE); PROTEIN,URINE DIPSTICK 1+ (NEGATIVE)
[2018-01-04 10:28] LABS: URINE UROBILINOGEN 1 mg/dL (0.2 - 1)
[2018-01-04 10:38] LABS: BACTERIA,URINE MODERATE /HPF; EPITHELIAL CELLS,URINE FEW /LPF; RBC,URINE 0-5 /HPF (0-5); WBC,URINE (MAN) 21-50 /HPF (0-5)
[2018-01-04 10:54] LABS: THYROID STIMULATING HORMONE 1.271 uIU/mL (0.350-4.940)
--- NOTE | 2018-01-04 10:55 | Diagnostic Imaging Report ---
PROCEDURE: A single AP view of the chest. COMPARISON: Chest radiograph 06/11/17. INDICATIONS: SHORTNESS OF BREATH, FEVER, HYPOXEMIA FINDINGS: Lines/tubes: None. Lungs: Low lung volumes. Patchy opacities are present at the left lung base. Mild bilateral interstitial and perihilar opacity. Pleura: There is no pleural effusion or pneumothorax. Heart and mediastinum: The cardiomediastinal silhouette is unchanged. Atherosclerotic calcification of the aortic arch. Bones: No acute bony abnormality. IMPRESSION: Patchy left basilar opacity, which could represent pneumonia or atelectasis in the appropriate clinical context. Follow-up chest radiograph to resolution in 6-8 weeks is suggested. Low lung volumes, cannot exclude mild interstitial edema. Dictated by: TERRI RIVERA M.D. on 01/04/2018 at 11:03 Electronically approved by: TERRI RIVERA M.D. on 01/04/2018 at 11:03
[2018-01-04] MEDS: CEFEPIME HCL 1 GM VIAL IV SCH ×2 (11:20→21:08)
[2018-01-04] MEDS: VANCOMYCIN 1GM/NS 250 ML 250 ML IV SCH ×2 (11:53→21:15)
[2018-01-04] MEDS ORDERED: SODIUM CHLORIDE FLUSH 10 ML SYR INJ PRN (12:00)
[2018-01-04 12:14] LABS: ABG HCO3 33 mmol/L (23-28); ABG PCO2 63 mmHg (41-51); ABG PH 7.33 (7.31-7.41); ABG PO2 296 mmHg (80-105)
[2018-01-04] MEDS: IPRATROPIUM BROMIDE 0.02% 2.5 ML NEB NEB SCH ×3 (13:40→19:25)
[2018-01-04] MEDS ORDERED: DOCUSATE SODIU100 M1 PO (14:36)
[2018-01-04] MEDS ORDERED: LACTULOSE20 GM/30 M PO (14:40)
[2018-01-04] MEDS ORDERED: TEGRETOL200 MG PO (14:44)
[2018-01-04] MEDS ORDERED: ZOFRAN ODT4 MG PO (14:45)
[2018-01-04] MEDS ORDERED: ONDANSETRON HCL 4 MG ORAL DISINTEGRATING TAB PO PRN (15:30)
[2018-01-04] MEDS ORDERED: LACTULOSE SYRUP 20 GM/30 ML UDC PO PRN (15:30)
[2018-01-04] MEDS ORDERED: NON-FORMULARY MEDICATION (Docusate Sodium 100 MG) PO SCH (15:30)
[2018-01-04] MEDS ORDERED: DOCUSATE SODIUM 100 MG CAP PO PRN (15:45)
[2018-01-04] MEDS: FERROUS SULFATE 325 MG TAB PO SCH (16:41)
[2018-01-04] MEDS: GUAIFENESIN 600 MG TAB PO SCH (16:41)
[2018-01-04] MEDS: FAMOTIDINE 20 MG/2 ML VIAL IV SCH (16:41)
[2018-01-04] MEDS: CARBAMAZEPINE 200 MG TAB PO SCH (16:41)
[2018-01-04 17:08] LABS: INR 1.85; PROTHROMBIN TIME 22.8 seconds (11.9-14.5)
[2018-01-04] MEDS ORDERED: WARFARIN SOD 3 MG TAB PO SCH (17:30)
[2018-01-04] MEDS: WARFARIN SOD 2 MG TAB PO SCH (17:57)
[2018-01-04] MEDS: ENOXAPARIN SOD INJ 40 MG/0.4 ML SYR SC SCH (17:57)
[2018-01-04] MEDS: WARFARIN SOD 5 MG TAB PO SCH (17:58)
[2018-01-04] MEDS: ATORVASTATIN 10 MG TAB PO SCH (21:08)
[2018-01-04] MEDS: DOCUSATE SODIUM 100 MG CAP PO SCH (21:08)
[2018-01-05] VITALS (9 sets, daily range): BP systolic 94–124; BP diastolic 52–61
[2018-01-05] MEDS: IPRATROPIUM BROMIDE 0.02% 2.5 ML NEB NEB SCH ×4 (01:00→19:20)
[2018-01-05] MEDS: CEFEPIME HCL 1 GM VIAL IV SCH ×3 (04:23→20:15)
[2018-01-05] MEDS: GUAIFENESIN 600 MG TAB PO SCH ×2 (04:23→16:27)
[2018-01-05 05:03] LABS: BASOPHILS % 0.2 % (0.0-1.0); EOSINOPHILS # (AUTO) 0.3 (0.0-0.4); EOSINOPHILS % 2.1 % (0.0-6.0); HEMOGLOBIN 9.2 g/dL (12.0-16.0); LYMPHOCYTES # (AUTO) 1.3 (1.0-3.2); LYMPHOCYTES % 8.9 % (18.0-39.1); MEAN CORPUSCULAR HEMOGLOBIN 29.9 pg (28-32); MEAN CORPUSCULAR HGB CONC 30.7 g/dL (31-35); MEAN CORPUSCULAR VOLUME 97.4 fL (81-99); MONOCYTES # (AUTO) 1.4 (0.2-0.8); MONOCYTES % 9.2 % (4.4-11.3); NEUTROPHILS # (AUTO) 11.9 (2.1-6.9); NEUTROPHILS % 79.1 % (38.7-80.0); PLATELET COUNT 151 x10e3/uL (140-360); RED BLOOD COUNT 3.08 x10e6/uL (3.6-5.1); RED CELL DISTRIBUTION WIDTH 16.6 % (11.7-14.4)
[2018-01-05 05:30] LABS: ANION GAP 13.7 mmol/L (8-16); BLOOD UREA NITROGEN 9 mg/dL (7-26); BUN/CREATININE RATIO 13 (6-25); CALCIUM 8.6 mg/dL (8.4-10.2); CARBON DIOXIDE 29 mmol/L (22-29); CHLORIDE 100 mmol/L (98-107); EST GLOMERULAR FILTRATION RATE > 60 ML/MIN (60-); GLUCOSE 98 mg/dL (74-118); POTASSIUM 3.7 mmol/L (3.5-5.1); SODIUM 139 mmol/L (136-145)
--- NOTE | 2018-01-05 06:43 | Diagnostic Imaging Report ---
EXAM: CHEST SINGLE (PORTABLE), AP 1 view INDICATION: Pneumonia COMPARISON: AP view of the chest at January 05, 2018 FINDINGS: LINES/TUBES: None LUNGS: No consolidations or edema. Stable mild bibasilar atelectasis. PLEURA: No effusions or pneumothorax. HEART AND MEDIASTINUM: Stable appearance. BONES AND SOFT TISSUES: No acute findings. IMPRESSION: No interval change. Signed by: Dr. Lorri Yeager M.D. on 01/05/2018 6:39 AM
[2018-01-05] MEDS ORDERED: CALCIUM CARBONATE 500 MG PO SCH (09:00)
[2018-01-05] MEDS: DOCUSATE SODIUM 100 MG CAP PO SCH ×2 (09:00→20:30)
[2018-01-05] MEDS: POTASSIUM CHLORIDE 10MEQ EA PO SCH (09:00)
[2018-01-05] MEDS: PANTOPRAZOLE SOD 40 MG TABEC PO SCH (09:00)
[2018-01-05] MEDS: FOLIC ACID 1 MG TAB PO SCH (09:00)
[2018-01-05] MEDS: FAMOTIDINE 20 MG/2 ML VIAL IV SCH ×2 (09:00→17:30)
[2018-01-05] MEDS: ENOXAPARIN SOD INJ 40 MG/0.4 ML SYR SC SCH (09:00)
[2018-01-05] MEDS: FUROSEMIDE 40 MG TAB PO SCH (09:00)
[2018-01-05] MEDS: CARBAMAZEPINE 200 MG TAB PO SCH ×2 (09:00→17:29)
[2018-01-05] MEDS: OYST-CAL-D 500MG TABLET PO SCH (09:00)
[2018-01-05] MEDS: FERROUS SULFATE 325 MG TAB PO SCH ×2 (09:00→17:28)
[2018-01-05] MEDS: ALLOPURINOL 100 MG TAB PO SCH (09:00)
[2018-01-05] MEDS: AMLODIPINE BESYLATE 5 MG TAB PO SCH (09:00)
[2018-01-05] MEDS: PREDNISONE 5 MG TAB PO SCH (09:00)
--- NOTE | 2018-01-05 09:16 | Consultation ---
DATE OF CONSULTATION: January 05, 2018 CARDIOLOGY CONSULTATION REQUESTING PHYSICIAN: Dr. Srivastava REASON FOR CONSULTATION: Paroxysmal atrial fibrillation. HISTORY OF PRESENT ILLNESS: Ms. Medel is an 82-year-old lady with past medical history as listed below. She presented with complaints of shortness of breath and fever. Patient reportedly was getting a little short-winded and had some cough, gradually got worse. Patient states that she also has mild cough. Denies any chest pain or palpitations. Patient was noted to be in paroxysmal atrial fibrillation, so I was consulted. She states she takes some blood thinners at home but does not recall the name. REVIEW OF SYMPTOMS CONSTITUTIONAL: Has some fatigue and weakness. HEENT: No headache, blurring of vision, seizures or syncope. CARDIOVASCULAR: No chest pain. Had dyspnea. No orthopnea or PND. RESPIRATORY: Had some cough and fever. GI: No abdominal pain, vomiting or diarrhea. : No dysuria, frequency or incontinence. ALLERGIES: ALBUTEROL, CODEINE. MEDICATIONS: See list. PAST MEDICAL HISTORY 1. History of hypertension. 2. History of paroxysmal atrial fibrillation. 3. History of diabetes mellitus. 4. History of depression and anxiety. 5. History of rheumatoid arthritis. 6. History of DVT. 7. History of PE. 8. History of CHF. 9. History of GERD. 10. History of osteoporosis. SOCIAL HISTORY: Does not smoke or drink. FAMILY HISTORY: Noncontributory. PHYSICAL EXAMINATION GENERAL: Obese lady, alert, not in any obvious distress. VITALS: Heart rate is 86. Blood pressure is 123/58. Respiratory rate is 18. HEENT: Atraumatic. NECK: No JVD, bruit, thyromegaly, lymphadenopathy. CARDIOVASCULAR: First and second heart sounds heard. A 2/6 systolic murmur heard at the left sternal border. CHEST: Decreased air entry at the bases. No adventitious sounds appreciated. ABDOMEN: Obese, nontender. EXTREMITIES: There is 2+ edema. LABS: WBC is 15.0. Hemoglobin 9.2, hematocrit 30, platelets 151. Sodium is 139, potassium 3.7, chloride 100, BUN 9, creatinine 0.7. Glucose is 98. AST 18, ALT 99, alk phos 110. BNP is 77. TSH is 1.2. CHEST X-RAY: Patchy left basal opacity, which could represent pneumonia or atelectasis. IMPRESSION 1. Pneumonia. 2. Paroxysmal atrial fibrillation. 3. History of hypertension. 4. History of diabetes mellitus. 5. History of depression. 6. History of deep venous thrombosis and pulmonary embolism. 7. History of hypothyroidism. PLAN 1. The patient had paroxysmal atrial fibrillation and is back in sinus rhythm. 2. Patient was taking warfarin, can continue the same. 3. Keep INR between 2 and 3. 4. Continue with antibiotics. 5. Get echocardiogram to assess LV function and valvular function. 6. Patient's BNP is normal. She has leg edema and is on warfarin. Can continue the same. 7. Further cardiac workup depending on clinical course. 8. I discussed my impression and plan of management with the patient. As always, I appreciate and thank you very much for your referrals. Job#: [id number]
[2018-01-05] MEDS: VANCOMYCIN 1GM/NS 250 ML 250 ML IV SCH ×2 (10:15→20:30)
--- NOTE | 2018-01-05 12:43 | Consultation ---
DATE OF CONSULTATION: January 04, 2018 PULMONARY MEDICINE CONSULT REFERRING PHYSICIAN: Dr. Srivastava. REASON FOR REFERRAL: Respiratory failure. HISTORY: Mrs. Medel is a pleasant 82-year-old female with acute respiratory failure. Patient with onset x1 day. Progression was significant of worsening. Patient without any sick contacts definitely known. Patient came to the emergency room after she was having progressive shortness of breath that was unresponsive to initial remedies at her [facility] facility. In the emergency room she had 101.7 temperature maximum. Urinalysis with 25-50 white blood cells. Chest x-ray with left basilar opacity but low lung volumes as well. At this point patient also with a white count of 17,000. Due to work of breathing, she was given emergency BiPAP. She was admitted to the ICU. PAST MEDICAL HISTORY: CHF, GERD, DVT, thyroid abnormality, diabetes, hypertension. She has an IVC filter, atrial fibrillation, nonambulatory status for 5 years reportedly. MEDICINES: Medicine list is reviewed per the electronic record. In the hospital patient received cefepime and vancomycin already. ALLERGIES: ALBUTEROL, CODEINE, FAINTED. SOCIAL HISTORY: No smoking, no drinking, no drugs. Patient lives in [facility]. FAMILY HISTORY: Noncontributory to this. REVIEW OF SYSTEMS: Cannot get reliably. She is on respiratory support device. PHYSICAL EXAMINATION VITAL SIGNS: Afebrile right now on my exam, improved from before, vital signs semi-stable as she is using accessory muscles to breathe on BiPAP. HEENT: Normocephalic, atraumatic. NECK: Supple. Throat midline. LUNGS: Bilateral air entry is moderate, a few rhonchi. CARDIOVASCULAR: S1 and S2. No murmurs, rubs or gallops. ABDOMINAL: Soft, nontender. EXTREMITIES: No clubbing, no cyanosis. There is lymphedema in the legs. INTEGUMENT: No rash, no purpura. LABS: Hematocrit 35, white count 15, platelets 171. Potassium 3.4, BUN of 9, creatinine 0.8, bicarbonate 31. Other labs include INR of 2.26, albumin 2.9, total protein 6.3. IMPRESSION AND PLAN 1. Acute respiratory failure, bilateral positive airway pressure salvage. 2. Chronic weakness and poor mobility/debility. 3. Urinary tract infection. 4. Pneumonia. 5. Fever consistent with severe sepsis. 6. Hypoalbuminemia. 7. Low total protein. 8. Elevated international normalized ratio, warfarin toxicity plus or minus disseminated intravascular coagulation. 9. History of congestive heart failure, gastroesophageal reflux disease, deep vein thrombosis status post inferior vena cava filter, thyroid abnormality, diabetes, hypertension. Continue weaning BiPAP. Over the next 2 hours, we will wean the patient to nasal cannula oxygen. IV antibiotics should be continued. We will follow vancomycin and consider checking troughs as needed. Patient as well will have restorative care and prevention of decubitus ulcers. As she improves, will have her diuresed as much as possible. Pulmonary hypertension seems as a real possibility; so, will reevaluate her as she gets better. Thank you very much, Dr. Srivastava, for allowing me to participate in the care of your patient. Do not hesitate to contact me if I can help in any way. Job#: [id number] NORY
[2018-01-05] MEDS ORDERED: METHYLPREDNISOLONE SOD SUCC 125 MG/2ML VIAL IV ONE (13:15)
--- NOTE | 2018-01-05 13:33 | Progress Note ---
DATE: January 05, 2018 PULMONARY MEDICINE PROGRESS NOTE SUBJECTIVE: Ms. Medel was seen and examined at the bedside. She was weaned off BiPAP early yesterday. She is on 3 liters per minute by nasal cannula right now. The patient currently has 96% oxygen saturation. She ate about 50% of her meals. No bowel movement yet. REVIEW OF SYSTEMS: No headache. No rash. PHYSICAL EXAMINATION VITALS: Afebrile. Vital signs noted per electronic record. GENERAL: No acute distress. Alert, calm, slightly sleepy. HEENT: Normocephalic, atraumatic. NECK: Supple. Throat midline. LUNGS: Bilateral air entry is good, mild to moderate wheezing, a few rhonchi. CARDIOVASCULAR: S1 and S2. No murmurs, rubs or gallops. ABDOMEN: Soft, nontender. EXTREMITIES: No clubbing, no cyanosis. There is stable lymphedema, 2+ edema. INTEGUMENT: No rash, no purpura. LABS: BUN 9, 0.7 creatinine, 50 white count, 30 hematocrit. IMPRESSION AND PLAN 1. Acute respiratory failure, status post BiPAP salvage, now off BiPAP. 2. Acute pneumonia. 3. Urinary tract infection. 4. Wheezing, treat for exacerbation of asthma. 5. Associated lymphedema/fluid overload. 6. Atrial fibrillation with complicated run of rapid ventricular rate this morning. 7. Moderate protein-calorie malnutrition. The patient is still on oxygen and needs weaning as tolerated. She needs a lot of aggressive therapy. Continue additional steroids, and we will give her a boost today. Bronchodilators as needed. Resume anticoagulation as safe. INR is less toxic today. [facility] referral is made, and this is reasonable. Follow up antibiotic levels. Job#: [id number]
[2018-01-05] MEDS: WARFARIN SOD 2 MG TAB PO SCH (17:29)
[2018-01-05] MEDS: WARFARIN SOD 5 MG TAB PO SCH (17:29)
[2018-01-05] MEDS ORDERED: ACETAMINOPHEN 325 MG TAB PO PRN (19:30)
[2018-01-05] MEDS: ATORVASTATIN 10 MG TAB PO SCH (20:30)
[2018-01-06 00:11] VITALS: BP 116/55
[2018-01-06] MEDS: IPRATROPIUM BROMIDE 0.02% 2.5 ML NEB NEB SCH ×3 (00:20→13:28)
[2018-01-06] MEDS: GUAIFENESIN 600 MG TAB PO SCH ×2 (02:52→16:08)
[2018-01-06 04:38] LABS: BASOPHILS % 0.1 % (0.0-1.0); HEMATOCRIT 30.9 % (34.2-44.1); HEMOGLOBIN 9.7 g/dL (12.0-16.0); LYMPHOCYTES # (AUTO) 0.9 (1.0-3.2); LYMPHOCYTES % 6.3 % (18.0-39.1); MEAN CORPUSCULAR HEMOGLOBIN 29.9 pg (28-32); MEAN CORPUSCULAR HGB CONC 31.4 g/dL (31-35); MEAN CORPUSCULAR VOLUME 95.4 fL (81-99); MONOCYTES # (AUTO) 0.7 (0.2-0.8); MONOCYTES % 4.8 % (4.4-11.3); NEUTROPHILS % 88.1 % (38.7-80.0); PLATELET COUNT 177 x10e3/uL (140-360); RED BLOOD COUNT 3.24 x10e6/uL (3.6-5.1); RED CELL DISTRIBUTION WIDTH 15.9 % (11.7-14.4)
[2018-01-06 04:41] VITALS: BP 129/60
[2018-01-06 04:53] LABS: INR 2.16; PROTHROMBIN TIME 25.7 seconds (11.9-14.5)
[2018-01-06 05:04] LABS: BLOOD UREA NITROGEN 13 mg/dL (7-26); BUN/CREATININE RATIO 17 (6-25); CALCIUM 8.9 mg/dL (8.4-10.2); CARBON DIOXIDE 26 mmol/L (22-29); CHLORIDE 102 mmol/L (98-107); CREATININE, SERUM 0.77 mg/dL (0.57-1.11); EST GLOMERULAR FILTRATION RATE > 60 ML/MIN (60-); GLUCOSE 140 mg/dL (74-118); SODIUM 138 mmol/L (136-145)
[2018-01-06] MEDS: CEFEPIME HCL 1 GM VIAL IV SCH ×2 (05:24→12:59)
[2018-01-06 07:28] VITALS: BP 132/57
[2018-01-06 07:33] VITALS: BP 132/57
[2018-01-06] MEDS ORDERED: FUROSEMIDE INJ 10 MG/ML 4 ML VIAL IV NR (09:00)
[2018-01-06] MEDS: FERROUS SULFATE 325 MG TAB PO SCH ×2 (10:47→16:08)
[2018-01-06] MEDS: FAMOTIDINE 20 MG/2 ML VIAL IV SCH ×2 (10:47→16:08)
[2018-01-06] MEDS: AMLODIPINE BESYLATE 5 MG TAB PO SCH (10:47)
[2018-01-06] MEDS: PANTOPRAZOLE SOD 40 MG TABEC PO SCH (10:47)
[2018-01-06] MEDS: PREDNISONE 5 MG TAB PO SCH (10:47)
[2018-01-06] MEDS: ENOXAPARIN SOD INJ 40 MG/0.4 ML SYR SC SCH (10:47)
[2018-01-06] MEDS: ALLOPURINOL 100 MG TAB PO SCH (10:47)
[2018-01-06] MEDS: POTASSIUM CHLORIDE 10MEQ EA PO SCH (10:47)
[2018-01-06] MEDS: FUROSEMIDE 40 MG TAB PO SCH (10:47)
[2018-01-06] MEDS: VANCOMYCIN 1GM/NS 250 ML 250 ML IV SCH (10:47)
[2018-01-06] MEDS: FOLIC ACID 1 MG TAB PO SCH (10:47)
[2018-01-06] MEDS: DOCUSATE SODIUM 100 MG CAP PO SCH (10:47)
[2018-01-06] MEDS: OYST-CAL-D 500MG TABLET PO SCH (10:47)
[2018-01-06] MEDS: CARBAMAZEPINE 200 MG TAB PO SCH ×2 (10:47→16:08)
[2018-01-06 11:23] VITALS: BP 109/54
--- NOTE | 2018-01-06 13:14 | Progress Note ---
DATE: January 06, 2018 PULMONARY MEDICINE PROGRESS NOTE SUBJECTIVE: Mrs. Medel was seen and examined at bedside. She continues to have slow progress, 90% oxygen saturation, 3 liters per minute by nasal cannula. Patient is awake and bedbound. She is starting to eat although her dietary intake is still subpar. No longer using BiPAP. REVIEW OF SYSTEMS: No headaches, no rash. OBJECTIVE VITAL SIGNS: Afebrile. Vital signs noted per electronic record. GENERALLY: No acute distress, alert, weak but calm in bed. HEENT: Normocephalic, atraumatic. NECK: Supple. Throat midline. LUNGS: Bilateral air entry, decreased breath sounds in the base, a few rales, a few rhonchi. CARDIOVASCULAR: S1 and S2. No murmurs, rubs or gallops. ABDOMINAL: Soft, nontender. EXTREMITIES: No clubbing, no cyanosis. There is still the lymphedema, 2 to 3+ edema in the legs. INTEGUMENT: No rash. No purpura. LABS: White count 14, hematocrit 31, platelets 167. Potassium 4.0, bicarbonate 26, BUN 13, creatinine 0.8. BNP is 157. IMPRESSION AND PLAN 1. Acute respiratory failure, off bilateral positive airway pressure. 2. Pneumonia. 3. Urinary tract infection, Escherichia coli greater than 100,000 organisms. 4. Weakness. 5. Pulmonary hypertension, fluid overload. Continue antibiotics. Continue checking intermittent vancomycin trough and yesterday was checked to be 14. Patient needs long-term acute-care transfer as she still has a lot more work to do and she is still at high risk and she is still hard to manage. Patient is also on this immunosuppression as well, which takes further close followup. Follow along closely. Continue restorative care for her bottom and more occupational therapy. Job#: [id number] EV
[2018-01-06] MEDS ORDERED: SALINE 0.65% NAS SOLN 1 SPRAY BTL SCH ×2 (15:00→17:00)
[2018-01-06 16:10] VITALS: BP 112/67
[2018-01-06] MEDS ORDERED: WARFARIN SOD 5 MG TAB PO SCH (17:00)
[2018-01-06] MEDS ORDERED: WARFARIN SOD 2 MG TAB PO SCH (17:00)
--- NOTE | 2018-02-23 01:58 | Discharge Summary ---
CHIEF COMPLAINT: Pneumonia, respiratory failure. FINAL DIAGNOSES: 1. Aspiration pneumonitis. 2. Sepsis/urinary tract infection. 3. Debility. DISPOSITION: [facility]. Smqncd[age]ay[age]ch-old female with known history of hypertension, coronary artery disease, atrial fib, chronic pain due to rheumatoid arthritis, brought to the ER with a 3-day history of progressive shortness of breath, chest congestion, and somnolence along with cough associated with fever and chills. Underwent evaluation in the emergency room. Patient was placed on BiPAP in the ER. X-rays were conducted showing a right lower lobe pneumonia. Chest was revealing right basal rales. Further care was administered, and the patient was admitted to the facility for evaluation and care regarding issues of progressive shortness of breath, cough, fever, right lower lobe pneumonia, sepsis due to UTI, atrial fib. Will begin IV antibiotic coverage. Maintain BiPAP coverage. Receive nebulizer treatments. From the ER, patient was placed in IMCU, was on a cardiac diet, was started on the breathing treatments. Also being placed on vancomycin as well as cefepime. Daily medications were being copied and reconciled as well. Was receiving Lovenox 40 mg daily, bridging with warfarin 2 mg daily as well as 5 mg daily. Laboratory studies were showing stable electrolytes. Kidney functions stable. Glucose 98. CBC reveals a decreased hemoglobin of 9.2, white cell count [place] [id number]. With further care, she was resting well. She was receiving O2 nasal cannula along with her continued breathing treatments. Antibiotics were continuing. Discussions were being made to transfer the patient to LTAC facility for further long-term IV antibiotic care. Urine cultures were returning showing identification of the organism E[place]. [place] [id number], and she was transferred to [facility] for continuation of care, monitoring and management of her IV antibiotics as well as further respiratory rehab. EKGs are showing normal sinus rhythm, right bundle-branch block. Followed up with an echocardiogram showing an ejection fraction between 55% and 60%. No evidence of pericardial effusion. As mentioned, she was transferred to [facility], transferred with her IV access. To continue on her current diet. She will continue with her respiratory rehab. Her MAR sheet will continue at that location, and I will be monitoring her status daily. Adjustments will be made to her programs and protocols as needed. Dictated By: BROOKLYNN Adamson Job#: [id number]
== END 2018-01-06 18:27 | DRG 871 ==
LOC: ER 09:32 → ERHOLD 11:59 → ICU 13:11 → IMCU 22:55
DX: A41.51 Sepsis due to Escherichia coli [E. coli] (principal); J96.01 Acute respiratory failure with hypoxia; J69.0 Pneumonitis due to inhalation of food and vomit; J15.212 Pneumonia due to Methicillin resistant Staphylococcus aureus; J15.8 Pneumonia due to other specified bacteria; B37.1 Pulmonary candidiasis; N39.0 Urinary tract infection, site not specified; D68.32 Hemorrhagic disorder due to extrinsic circulating anticoagulants; J45.901 Unspecified asthma with (acute) exacerbation; E44.0 Moderate protein-calorie malnutrition; R65.20 Severe sepsis without septic shock; Z86.718 Personal history of other venous thrombosis and embolism; Z79.01 Long term (current) use of anticoagulants; K21.9 Gastro-esophageal reflux disease without esophagitis; E88.09 Other disorders of plasma-protein metabolism, not elsewhere classified; I27.20 Pulmonary hypertension, unspecified; T45.515A Adverse effect of anticoagulants, initial encounter; Z95.828 Presence of other vascular implants and grafts; I48.0 Paroxysmal atrial fibrillation; M06.9 Rheumatoid arthritis, unspecified; M81.0 Age-related osteoporosis without current pathological fracture; F41.9 Anxiety disorder, unspecified; Z68.37 Body mass index [BMI] 37.0-37.9, adult; Z74.01 Bed confinement status; E77.8 Other disorders of glycoprotein metabolism; I45.10 Unspecified right bundle-branch block
CPT/HCPCS: 36415; 36600; 71045; 80048; 80053; 80202; 81001; 82805; 82948; 83605; 83735; 83880; 84100; 84443; 84484; 85025; 85610; 87040; 87070; 87071; 87086; 87186; 87205; 93005; 93306; 94640; 94660; 99284; J0692; J1650; J2930; J3370; J7030; J7512

== ENCOUNTER 2019-03-16 15:12 | Emergency (ER) | payer MEDICARE ==
[~2019-03-16] VITALS: Ht 309.9 cm; Wt 92.5 kg
[~2019-03-16 15:12] MED LIST changes: +DOCUSATE SODIU100 M1 PO; +LACTULOSE20 GM/30 M PO; +TEGRETOL200 MG PO; +ZOFRAN ODT4 MG PO
[2019-03-16 15:50] LABS: BASOPHILS % 0.3 % (0.0-1.0); EOSINOPHILS # (AUTO) 0.2 (0.0-0.4); EOSINOPHILS % 2.2 % (0.0-6.0); HEMATOCRIT 30.8 % (34.2-44.1); HEMOGLOBIN 9.3 g/dL (12.0-16.0); LYMPHOCYTES % 15.6 % (18.0-39.1); MEAN CORPUSCULAR HEMOGLOBIN 27.6 pg (28-32); MEAN CORPUSCULAR HGB CONC 30.2 g/dL (31-35); MEAN CORPUSCULAR VOLUME 91.4 fL (81-99); MONOCYTES # (AUTO) 0.5 (0.2-0.8); MONOCYTES % 7.8 % (4.4-11.3); NEUTROPHILS # (AUTO) 4.9 (2.1-6.9); NEUTROPHILS % 73.8 % (38.7-80.0); PLATELET COUNT 152 x10e3/uL (140-360); RED BLOOD COUNT 3.37 x10e6/uL (3.6-5.1); RED CELL DISTRIBUTION WIDTH 13.4 % (11.7-14.4)
[2019-03-16 16:03] LABS: INR 1.29; PROTHROMBIN TIME 16.7 seconds (11.9-14.5)
[2019-03-16 16:04] LABS: PARTIAL THROMBOPLASTIN TIME 33.4 seconds (23.8-35.5)
[2019-03-16 16:11] LABS: ALANINE AMINOTRANSFERASE 13 IU/L (0-55); ALBUMIN 2.9 g/dL (3.5-5.0); ALKALINE PHOSPHATASE 66 IU/L (40-150); ANION GAP 12.5 mmol/L (8-16); BLOOD UREA NITROGEN 11 mg/dL (7-26); BUN/CREATININE RATIO 17 (6-25); CALCIUM 8.3 mg/dL (8.4-10.2); CARBON DIOXIDE 32 mmol/L (22-29); CHLORIDE 93 mmol/L (98-107); CREATINE KINASE 15 IU/L (29-168); CREATININE, SERUM 0.64 mg/dL (0.57-1.11); EST GLOMERULAR FILTRATION RATE > 60 ML/MIN (60-); GLUCOSE 157 mg/dL (74-118); MAGNESIUM 1.9 MG/DL (1.3-2.1); POTASSIUM 3.5 mmol/L (3.5-5.1); SODIUM 134 mmol/L (136-145)
--- NOTE | 2019-03-16 16:12 | Diagnostic Imaging Report ---
Chest, portable AP view History: Shortness of breath Comparison: 01/05/2018 IMPRESSION: The heart is mildly enlarged, stable. The thoracic aorta demonstrates atelectatic calcifications. Patchy opacity at the left base may be secondary to pneumonitis. There is no sizable pleural effusion. There is no pneumothorax. No acute osseous abnormalities. Signed by: Jorge Sanchez MD on 03/16/2019 4:09 PM
[2019-03-16] MEDS ORDERED: LEVAQUIN500 MG PO (16:35)
--- NOTE | 2019-03-16 16:36 | NUR ---
called [facility] for return
[2019-03-16] MEDS ORDERED: FUROSEMIDE INJ 10 MG/ML 4 ML VIAL IV ONE (16:45)
== END 2019-03-16 16:50 | disposition home or self-care (01) ==
LOC: ER 15:12
DX: R06.00 Dyspnea, unspecified (principal); R05 Cough; J18.9 Pneumonia, unspecified organism
CPT/HCPCS: 36415; 71045; 80053; 82550; 82553; 83735; 84484; 85025; 85610; 85730; 93005; 99284

== ENCOUNTER 2019-06-27 23:32 | Inpatient (IN) | payer MEDICARE ==
[~2019-06-27] VITALS: Ht 309.9 cm; Wt 78.5 kg
[~2019-06-27 23:32] MED LIST changes: +LEVAQUIN500 MG PO
[2019-06-27] MEDS ORDERED: SODIUM CHLORIDE 0.9% 1000ML 2,000 ML ONE (23:44)
[2019-06-28] VITALS (20 sets, daily range): BP systolic 83–114; BP diastolic 31–74
[2019-06-28 00:02] LABS: BASOPHILS % 0.1 % (0.0-1.0); EOSINOPHILS # (AUTO) 0.4 (0.0-0.4); EOSINOPHILS % 2.1 % (0.0-6.0); LYMPHOCYTES % 4.9 % (18.0-39.1); MEAN CORPUSCULAR HEMOGLOBIN 25.1 pg (28-32); MONOCYTES # (AUTO) 0.1 (0.2-0.8); MONOCYTES % 0.6 % (4.4-11.3); NEUTROPHILS # (AUTO) 19.2 (2.1-6.9); NEUTROPHILS % 91.4 % (38.7-80.0); PLATELET COUNT 140 x10e3/uL (140-360); RED BLOOD COUNT 2.31 x10e6/uL (3.6-5.1)
[2019-06-28 00:18] LABS: INR 2.76; PROTHROMBIN TIME 31.3 seconds (11.9-14.5)
[2019-06-28 00:22] LABS: HEMATOCRIT 18.7 % (34.2-44.1); HEMOGLOBIN 5.8 g/dL (12.0-16.0)
[2019-06-28 00:25] LABS: ANION GAP 13.2 mmol/L (8-16); CREATININE, SERUM 1.76 mg/dL (0.57-1.11); POTASSIUM 4.2 mmol/L (3.5-5.1)
[2019-06-28 00:28] LABS: CALCIUM 6.6 mg/dL (8.4-10.2)
[2019-06-28] MEDS ORDERED: DEXTROSE 50% SYRINGE 50 ML IV STA (00:28)
[2019-06-28] MEDS ORDERED: FUROSEMIDE INJ 10 MG/ML 2 ML VIAL IV SCH (00:30)
[2019-06-28] MEDS ORDERED: SODIUM CHLORIDE 0.9% 250ML 250 ML IV ONE (00:30)
[2019-06-28] MEDS ORDERED: DEXTROSE 50% SYRINGE 50 ML IV ONE (00:35)
[2019-06-28 00:46] LABS: ALBUMIN 1.5 g/dL (3.5-5.0); ALBUMIN/GLOBULIN RATIO 0.5 (0.8-2.0)
[2019-06-28 00:54] LABS: CREATINE KINASE MB 0.5 ng/mL (0-5.0)
[2019-06-28] MEDS ORDERED: CEFTRIAXONE SOD 1 GM/NS 50 ML 50 ML IV SCH (01:00)
--- NOTE | 2019-06-28 01:01 | Diagnostic Imaging Report ---
Examination: Single AP view of the chest. COMPARISON: Chest radiograph on 03/23/2019. INDICATION: Hypotension. Weakness. DISCUSSION: Lines/tubes: None. Lungs: The lungs are mildly hyperinflated. There is no evidence of pneumonia or pulmonary edema. Pleura: There is no pleural effusion or pneumothorax. Heart and mediastinum: Mild enlargement of the cardiac silhouette and mediastinum, unchanged. Calcifications of the thoracic aorta. Bones and soft tissues: No acute bony abnormalities. Upper lumbar vertebroplasty. IMPRESSION: No acute thoracic abnormality. Signed by: Dr. Betsy Odom M.D. on 06/28/2019 12:58 AM
[2019-06-28 01:11] LABS: CLARITY,URINE CLOUDY (CLEAR); COLOR,URINE YELLOW (YELLOW)
[2019-06-28 01:12] LABS: BILIRUBIN,URINE MODERATE (NEGATIVE); KETONES,URINE NEGATIVE (NEGATIVE); LEUKOCYTE ESTERASE ,URINE NEGATIVE (NEGATIVE); NITRITE,URINE NEGATIVE (NEGATIVE); PROTEIN,URINE DIPSTICK NEGATIVE (NEGATIVE)
[2019-06-28 01:50] LABS: BACTERIA,URINE MANY /HPF; EPITHELIAL CELLS,URINE FEW /LPF; RBC,URINE 0-5 /HPF (0-5)
[2019-06-28] MEDS ORDERED: DEXTROSE 50% SYRINGE 50 ML IV PRN (02:00)
[2019-06-28] MEDS ORDERED: ONDANSETRON HCL INJ 2MG/ML 2ML 2 MG/ML VIAL IV PRN (02:00)
--- NOTE | 2019-06-28 03:00 | NUR ---
Received to 189 from ER. Placed on EKG, pulse ox & NBP for monitoring. IV Rocephin given. Admission history and initial admission assessment done. See interventions.
--- NOTE | 2019-06-28 03:45 | NUR ---
c/o SOB. Placed on 2L NC.
[2019-06-28] MEDS ORDERED: XOPENEX1.25 MG/3 INH (03:46)
[2019-06-28] MEDS ORDERED: ATIVAN1 MG PO (03:46)
[2019-06-28] MEDS ORDERED: METHOTREXATE2.5 MG PO (03:46)
[2019-06-28] MEDS ORDERED: AMIODARONE HCL200 MG PO (03:46)
[2019-06-28] MEDS ORDERED: ACETYLCYST100 MG/1 M (03:46)
[2019-06-28] MEDS ORDERED: NORCO 5-325 TA1 EACH PO (03:46)
[2019-06-28] MEDS ORDERED: ELIQUIS5 M1 PO (03:46)
[2019-06-28] MEDS ORDERED: GENTEAL TEARS1 EACH OU (03:46)
[2019-06-28] MEDS ORDERED: ANALPRAM HC 2.530 GM PR (03:46)
[2019-06-28] MEDS ORDERED: ULTRAM50 MG PO (03:46)
[2019-06-28] MEDS ORDERED: LIDODERM TOP (03:46)
[2019-06-28] MEDS ORDERED: MIRTAZAPINE15 MG PO (03:46)
[2019-06-28] MEDS ORDERED: REQUIP0.25 MG PO (03:46)
[2019-06-28] MEDS ORDERED: NYSTATIN15 G2 TP (03:46)
[2019-06-28] MEDS ORDERED: BENADRYL25 M1 PEG (03:46)
[2019-06-28] MEDS ORDERED: SODIUM CHLORIDE 0.9% 250ML 250 ML ONE (04:00)
--- NOTE | 2019-06-28 04:00 | NUR ---
First unit PC started.
--- NOTE | 2019-06-28 07:13 | NUR ---
Bedside report from SANIA Ariza. 2nd unit PRBC started.
[2019-06-28] MEDS: INSULIN REGULAR, HUMAN 100 UNIT/1 ML 3ML VIAL SQ SCH ×4 (07:30→21:00)
[2019-06-28] MEDS ORDERED: LACTULOSE SYRUP 20 GM/30 ML UDC PO PRN (08:00)
[2019-06-28] MEDS ORDERED: TRAMADOL HCL 50 MG TAB PO PRN (08:00)
[2019-06-28] MEDS ORDERED: LORAZEPAM 0.5 MG TAB PO PRN (08:00)
--- NOTE | 2019-06-28 08:32 | Consultation ---
DATE OF CONSULTATION: Pulmonary Critical Care Consultation CHIEF COMPLAINT: Weakness, low blood pressure, and anemia. HISTORY OF PRESENT ILLNESS: The patient is an 84-year-old woman. She has a complicated medical history including prior atrial fibrillation, hypertension, and a vague history of congestive heart failure. She also has a history of deep vein thrombosis in the past and required an IVC filter. She was hospitalized at [facility] in March with influenza B and respiratory failure that required BiPAP. She has been staying at the medical resort. Apparently, she became weaker. Her blood pressure was low. When she arrived in the emergency department, she was found to have a hemoglobin of 5.8. There was no history of any prior bleeding. There is no report of any hematemesis or hematochezia. The patient is now receiving packed red blood cells and is in the intensive care unit. PAST SURGICAL HISTORY: 1. Status post hysterectomy. 2. Status post thyroidectomy. 3. Status post IVC placement. PAST MEDICAL HISTORY: 1. Atrial fibrillation. 2. Hypertension. 3. Congestive heart failure, unspecified. 4. Recent hospitalization for influenza and respiratory failure. FAMILY HISTORY: Family history is noncontributory. SOCIAL HISTORY: The patient is not an active smoker or drinker. She stays at the nursing facility. ALLERGIES: THE PATIENT IS ALLERGIC TO PENICILLINS WELL ALBUTEROL AND CODEINE. PHYSICAL EXAMINATION: VITAL SIGNS: The patient is now afebrile. Her blood pressure is 96/60 and her saturation is 98% on 2 L. Her pulse is 78. HEENT: Shows no facial swelling or erythema. CARDIAC: Reveals regular rate and rhythm with normal S1, S2. LUNGS: Auscultation of lungs reveals clear breath sounds bilaterally. There is no wheezing. ABDOMEN: Soft, nontender. There is no rebound or guarding. EXTREMITIES: Shows 3 to 4+ leg edema. LABORATORY DATA: The hemoglobin is 5.8 and the and the platelet count is 140. The white blood cell count is 20.97. The BUN to creatinine ratio is 22 to 1.76 and the sodium is 128. The calcium is 6.6. RADIOGRAPHIC DATA: Chest x-ray shows no acute abnormality. Urinalysis shows 10 to 20 white blood. IMPRESSION: 1. Anemia secondary to acute blood loss with hypotension, present on admission. 2. Acute kidney injury. 3. Hyponatremia. 4. Leukocytosis with sepsis, present on admission with unclear source. 5. Urinary tract infection. 6. Atrial fibrillation. 7. Congestive heart failure, unspecified. 8. Organic brain syndrome. PLAN: 1. The patient will receive additional packed red blood cells with a repeat CBC. 2. Antibiotics to cover for prior methicillin-resistant Staph aureus and other hospital-acquired infections until culture results are back. 3. Continue current cardiac regimen. 4. Clarify code status with the patient and family. 5. The patient has previously been seen by Dr. Jesus, hence I will transfer care to him. Daquan Moody MD [facility]/MODL /[id number]
[2019-06-28] MEDS ORDERED: VANCOMYCIN 1GM/NS 250 ML 250 ML IV ONE (08:45)
[2019-06-28] MEDS ORDERED: PANTOPRAZOLE SOD 40 MG TABEC PO SCH (09:00)
[2019-06-28 09:42] LABS: ALBUMIN 1.5 g/dL (3.5-5.0); ALBUMIN/GLOBULIN RATIO 0.5 (0.8-2.0); CREATININE, SERUM 1.83 mg/dL (0.57-1.11)
[2019-06-28 10:06] LABS: CALCIUM 6.5 mg/dL (8.4-10.2)
[2019-06-28] MEDS: ALLOPURINOL 100 MG TAB PO SCH (10:14)
[2019-06-28] MEDS: FERROUS SULFATE 325 MG TAB PO SCH ×2 (10:14→16:48)
[2019-06-28] MEDS: FOLIC ACID 1 MG TAB PO SCH (10:14)
[2019-06-28] MEDS: AMIODARONE HCL 200 MG TAB PO SCH ×2 (10:14→20:02)
[2019-06-28] MEDS: CARBAMAZEPINE 200 MG TAB PO SCH ×2 (10:14→16:49)
--- NOTE | 2019-06-28 10:30 | NUR ---
Bedside report to SANIA Orozco. 3rd unit of [address] PRBCs infusing. RN understands Dr Emma Moody wished to hold giving any more post transfusion Lasix due to hypotension.
--- NOTE | 2019-06-28 10:45 | NUR ---
Assumed care of patient. Blood in progress.
[2019-06-28] MEDS: MEROPENEM 1GM 100 ML IV SCH ×2 (10:50→18:34)
[2019-06-28 13:45] LABS: HEMATOCRIT 29.6 % (34.2-44.1); HEMOGLOBIN 9.4 g/dL (12.0-16.0)
[2019-06-28] MEDS ORDERED: ALBUMIN 25% 25GM 100ML 0.25 GM/ML BTL IV ONE (14:15)
[2019-06-28] MEDS ORDERED: ALBUMIN 25% 25GM 100ML 100 ML IV ONE (14:30)
[2019-06-28] MEDS ORDERED: PANTOPRAZOLE 40 MG 10ML VIAL IV SCH (15:45)
[2019-06-28] MEDS: PANTOPRAZOLE 40 MG 10ML VIAL IV SCH (16:30)
--- NOTE | 2019-06-28 16:34 | NUR ---
Nutrition Screen Note RD Recommendation for Physician: -Appropriate diet regimen per ST Plan of Care: RD following, monitoring for tolerance and adequacy Nutrition reason for involvement: Nutrition Risk Trigger MST 2 Primary Diagnose(s): dehydration, UTI PMH: afib, HTN, CHF, recent hospitalization for influenza and respiratory failure Ht: 62 in (per previous admission in March 2019) Wt: 176 lb BMI: 32.2 kg/m2 IBW:[address] Assessment: (06/27) Chart reviewed. Labs and meds reviewed. Pt is an 84 year old female admitted with dehydration and UTI. Pt provided limited information at time of visit. Unable to assess PO intake prior to admission. Per weight history in chart, pt weighed 195 in March 2019. Pt currently has a weight of 176 lbs in chart. If accurate this would be a 9% weight loss in 3 months which is significant weight loss. Per ST note, pt vomited during swallowing assessment; therefore, ST recommended pt be NPO until re-evaluation can be performed. Will continue to monitor Current Diet: NPO Malnutrition Evaluation (06/27) The patient does not meet criteria for a specified degree of malnutrition at this time. Will re-evaluate at follow-up as appropriate. Unable to accurately assess - Pt provided limited information at time of visit Diet Education Needs Assessment: Diet education not indicated. Nutrition Care Level: low Signed: Louise Rutherford, RD, LD
[2019-06-28] MEDS ORDERED: SODIUM CHLORIDE 0.9% 500ML 500 ML IV SCH ×2 (16:45→18:25)
[2019-06-28] MEDS ORDERED: LIDOCAINE HCL 1% LOCAL INJ 20 ML VIAL ONE (17:13)
[2019-06-28] MEDS ORDERED: HALOPERIDOL LACTATE 5 MG/ML VIAL IV PRN (18:30)
[2019-06-28] MEDS ORDERED: NOREPINEPHRINE INJ 4MG/4ML 8 MG in DEXTROSE 5% 250ML 250 ML IV SCH (18:30)
--- NOTE | 2019-06-28 18:53 | Diagnostic Imaging Report ---
EXAM: CHEST XRAY LINE PLACEMENT DATE: 06/28/2019 5:47 PM INDICATION: ^Central Line ^[id number] ^[id number] COMPARISON: Chest x-ray, 06/28/2019, 12:18 AM FINDINGS: Lines and tubes: Interval placement of a right IJ central venous catheter extending to the mid atrial level. Cardiac silhouette is upper normal size. No focal pulmonary opacity, pleural effusion or pneumothorax. Central pulmonary vascular prominence appears increased since last exam. Upper abdomen unremarkable. Vertebral plasty cement is seen in an upper lumbar vertebral body. No acute bony abnormality identified. IMPRESSION: 1. Borderline heart size with mild central pulmonary vascular prominence. 2. Right IJ central venous catheter extending to the mid atrial level. No pneumothorax. Signed by: Dr. Arcenio Sweet M.D. on 06/28/2019 6:50 PM
[2019-06-28] MEDS: NOREPINEPHRINE INJ 4MG/4ML 8 MG in DEXTROSE 5% 250ML 250 ML IV SCH (19:47)
[2019-06-28] MEDS: MIRTAZAPINE 15 MG TAB PO SCH (20:03)
[2019-06-28] MEDS: ROPINIROLE HCL 0.25 MG TAB PO SCH (20:03)
[2019-06-29] VITALS (73 sets, daily range): BP systolic 53–122; BP diastolic 31–88
[2019-06-29] MEDS: MEROPENEM 1GM 100 ML IV SCH ×3 (01:43→17:48)
[2019-06-29] MEDS ORDERED: LORAZEPAM INJ 2 MG/ML VIAL ONE (02:15)
[2019-06-29] MEDS ORDERED: LORAZEPAM INJ 2 MG/ML VIAL IV ONE (02:15)
[2019-06-29 05:14] LABS: BASOPHILS # (AUTO) 0.1 (0.0-0.1); BASOPHILS % 0.3 % (0.0-1.0); EOSINOPHILS # (AUTO) 0.5 (0.0-0.4); EOSINOPHILS % 3.5 % (0.0-6.0); HEMOGLOBIN 9.2 g/dL (12.0-16.0); LYMPHOCYTES # (AUTO) 0.6 (1.0-3.2); LYMPHOCYTES % 3.6 % (18.0-39.1); MEAN CORPUSCULAR HEMOGLOBIN 27.2 pg (28-32); MEAN CORPUSCULAR HGB CONC 32.9 g/dL (31-35); MEAN CORPUSCULAR VOLUME 82.8 fL (81-99); MONOCYTES # (AUTO) 0.1 (0.2-0.8); MONOCYTES % 0.9 % (4.4-11.3); NEUTROPHILS # (AUTO) 13.7 (2.1-6.9); NEUTROPHILS % 88.5 % (38.7-80.0); PLATELET COUNT 105 x10e3/uL (140-360); RED BLOOD COUNT 3.38 x10e6/uL (3.6-5.1); RED CELL DISTRIBUTION WIDTH 25.4 % (11.7-14.4)
--- NOTE | 2019-06-29 05:28 | Diagnostic Imaging Report ---
EXAM: CHEST SINGLE (PORTABLE) DATE: 06/29/2019 6:30 AM INDICATION: CHF. COMPARISON: Chest x-ray, 06/28/2019 1756 hours. FINDINGS: Lines and tubes: Redemonstration of a right IJ central venous catheter extending to the mid atrial level. Cardiac silhouette is mildly enlarged. Widening of the superior mediastinum is likely related to portable technique. Calcification of the aortic arch. Lungs are hypoinflated. Mild bilateral perihilar, peribronchial thickening. Mild prominence of the central pulmonary vasculature. No pleural effusion or pneumothorax. Upper abdomen unremarkable. Kyphoplasty of a upper lumbar vertebral body. No acute bony abnormality identified. IMPRESSION: 1. Stable exam. Mild pulmonary congestion and interstitial edema. Signed by: Dr. Betsy Odom M.D. on 06/29/2019 5:25 AM
[2019-06-29 05:41] LABS: ALBUMIN 1.9 g/dL (3.5-5.0); ALBUMIN/GLOBULIN RATIO 0.7 (0.8-2.0); ANION GAP 15.6 mmol/L (8-16); CREATININE, SERUM 1.79 mg/dL (0.57-1.11); POTASSIUM 3.6 mmol/L (3.5-5.1)
[2019-06-29 05:44] LABS: CALCIUM 6.6 mg/dL (8.4-10.2)
[2019-06-29] MEDS ORDERED: NOREPINEPHRINE 8 MG/D5W 250 ML 250 ML ONE (07:22)
[2019-06-29] MEDS: INSULIN REGULAR, HUMAN 100 UNIT/1 ML 3ML VIAL SQ SCH ×3 (07:30→18:00)
[2019-06-29] MEDS: NOREPINEPHRINE INJ 4MG/4ML 8 MG in DEXTROSE 5% 250ML 250 ML IV SCH ×3 (08:00→23:52)
[2019-06-29] MEDS: AMIODARONE HCL 200 MG TAB PO SCH ×2 (08:19→21:00)
[2019-06-29] MEDS: CARBAMAZEPINE 200 MG TAB PO SCH ×2 (08:19→16:30)
[2019-06-29] MEDS: ALLOPURINOL 100 MG TAB PO SCH (08:19)
[2019-06-29] MEDS: FOLIC ACID 1 MG TAB PO SCH (08:19)
[2019-06-29] MEDS: FERROUS SULFATE 325 MG TAB PO SCH ×2 (08:19→16:30)
[2019-06-29] MEDS: PANTOPRAZOLE 40 MG 10ML VIAL IV SCH ×2 (08:56→16:35)
--- NOTE | 2019-06-29 08:56 | Diagnostic Imaging Report ---
PROCEDURE: Non-tunneled central venous catheter placement Procedural Personnel Attending physician(s): Galina Pal MD Fellow physician(s): None Resident physician(s): None Advanced practice provider(s): None Pre-procedure diagnosis: Hypotension Post-procedure diagnosis: Same Indication: Administration of intravenous medications Additional clinical history: None Complications: No immediate complications. IMPRESSION: Insertion of right-sided non-tunneled triple-lumen temporary central venous catheter. Plan: Chest radiograph to confirm positioning prior to use. PROCEDURE SUMMARY: - Venous access with ultrasound guidance - Non-tunneled central venous catheter insertion - Additional procedure(s): None PROCEDURE DETAILS: Pre-procedure Consent: Informed consent for the procedure including risks, benefits and alternatives was obtained and time-out was performed prior to the procedure. Preparation (MIPS): The site was prepared and draped using all elements of maximal sterile barrier technique including sterile gloves, sterile gown, cap, mask, large sterile sheet, sterile ultrasound probe cover, hand hygiene and cutaneous antisepsis with 2% chlorhexidine. Medical reason for site preparation exception (MIPS): Not applicable Anesthesia/sedation Level of anesthesia/sedation: No sedation Anesthesia/sedation administered by: Independent trained observer under attending supervision with continuous monitoring of the patient?s level of consciousness and physiologic status Total intra-service sedation time (minutes): N/A Access Local anesthesia was administered. The vessel was sonographically evaluated and determined to be patent. Real time ultrasound was used to visualize needle entry into the vessel and a permanent image was stored. Vein accessed: Internal jugular vein Access technique: Micropuncture set with 21 gauge needle Catheter placement The access site was dilated and the catheter was placed into the vein over a wire. A sterile dressing was applied. Catheter placed: Bard triple lumen Catheter size (Macedonian): 7 Catheter length (cm): 15 Catheter flush: Normal saline Catheter securement technique: Non-absorbable suture Contrast Contrast agent: None Contrast volume (mL): NA Radiation Dose None. Ultrasound only. Additional Details Additional description of procedure: None Equipment details: None Specimens removed: None Estimated blood loss (mL): Less than 10 Standardized report: [email or web address] Attestation Signer name: Galina Pal MD I attest that I was present for the entire procedure. I reviewed the stored images and agree with the report as written. Signed by: Galina Pal MD on 06/29/2019 8:53 AM
[2019-06-29] MEDS ORDERED: DEXTROSE 5% 1,000 ML IV SCH (09:30)
[2019-06-29] MEDS ORDERED: CALCIUM GLUCONATE 10% INJ 4.65 MEQ in SODIUM CHLORIDE 0.9% 50ML 50 ML IV ONE (10:45)
--- NOTE | 2019-06-29 10:52 | NUR ---
ST Note: Attempted to see pt for ongoing assessment of swallow safety. Per Usha RN, pt NPO for procedure. Will f/u later today time permitting.
[2019-06-29] MEDS ORDERED: MIDAZOLAM HCL 2 MG/2 ML VIAL ONE (11:37)
[2019-06-29] MEDS ORDERED: CALCIUM CHLORIDE 10% 1.36 MEQ/ML 10ML SYR IV ONE (11:39)
[2019-06-29] MEDS ORDERED: SODIUM BICARBONATE 8.4% 50 ML VIAL ONE (11:39)
[2019-06-29] MEDS ORDERED: EPINEPHRINE HCL SYRINGE ONE ×2 (11:39→13:29)
[2019-06-29] MEDS ORDERED: ATROPINE SULFATE 0.1 MG/ML 10ML SYR ONE (11:39)
--- NOTE | 2019-06-29 11:50 | NUR ---
WOUND CARE NURSE INITIAL CONSULTATION. 84 YEAR OLD FEMALE ADMITTED TO [facility] WITH DX OF DEHYDRATION, UTI, AND OCCULT BLOOD + STOOL. HEAD TO TOE SKIN ASSESSMENT PERFORMED. PT PRESENTS WITH MULTIPLE DTI'S TP SACRUM AND BILATERAL BUTTOCKS. DENUDED PERINEUM AND RIGHT BUTTOCK WELL YEAST TO BILATERAL BREAST FOLDS AND RIGHT POSTERIOR KNEE BEND. 4+ PITTING EDEMA TO BILATERAL BUTTOCKS. THERE ARE NO OTHER AREAS OF CONCERN NOTED AT THIS TIME. NO S/S OF ACTIVE INFECTION NOTED. LABS: WBC:15.50 ALB: 2.9 URINE AND BLOOD CX RESULTS ARE PENDING. RECOMMENDATIONS: CONTINUE WITH ALTERNATING LOW AIR LOSS MATTRESS. PROVIDE PT WITH BILATERAL HEEL PROTECTORS AND CONTINUE WITH PILLOW SUSPENSIONS. REPOSITION PT EVERY TWO HOURS AND PRN. CLEAN BILATERAL BUTTOCKS, RIGHT POSTERIOR KNEE BEND, PERINEUM, AND BREAST FOLDS WITH SOAP AND WATER, PAT DRY AND APPLY NYSTATIN POWDER DAILY. APPLY VENELEX OINTMENT TO BILATERAL BUTTOCKS AND SACRUM DAILY. THANKS FOR THIS CONSULTATION. Addendum: 06/29/19 at 1202 by Bijal Ernst RN Amended: Links added.
[2019-06-29] MEDS ORDERED: SODIUM CHLORIDE 0.9% 1000ML 1,000 ML IV ONE (13:30)
[2019-06-29] MEDS ORDERED: DEXTROSE 5%/0.9% SOD CHL 1,000 ML IV SCH (13:30)
[2019-06-29] MEDS ORDERED: SODIUM CHLORIDE 0.9% 1000ML 1,000 ML ONE (13:33)
[2019-06-29 14:03] LABS: HEMATOCRIT 30.4 % (34.2-44.1); HEMOGLOBIN 9.4 g/dL (12.0-16.0)
[2019-06-29] MEDS ORDERED: VANCOMYCIN 1GM/NS 250 ML 250 ML IV STA (14:21)
[2019-06-29] MEDS ORDERED: GENTAMICIN 80MG/NS 100 ML 100 ML IV ONE (15:30)
--- NOTE | 2019-06-29 15:40 | Diagnostic Imaging Report ---
Chest, one view. HISTORY: ^INTUBATION. ETT PLACEMENT ^[id number] ^[id number] COMPARISON: Radiograph from earlier today IMPRESSION: A right IJ central venous catheter has its tip at the superior cavoatrial junction. An endotracheal tube has its tip 1.7 cm above the elizabeth. There are bilateral increased interstitial opacities of the lungs which are likely due to interstitial pulmonary edema, similar to the prior examination. A trace right pleural effusion is new. No pneumothorax. The cardiac silhouette is unchanged. No acute bony abnormality. 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 Prior upper lumbar vertebroplasty. Signed by: Atilio Carcamo JR, MD on 06/29/2019 3:37 PM
[2019-06-29] MEDS ORDERED: LACTATED RINGER'S 500 ML IV ONE (16:30)
[2019-06-29] MEDS ORDERED: LACTATED RINGER'S 500 ML INJ ONE (16:45)
[2019-06-29 17:25] LABS: ABG HCO3 14 mmol/L (23-28); ABG PCO2 38 mmHg (41-51); ABG PH 7.19 (7.31-7.41)
--- NOTE | 2019-06-29 17:49 | Operative Report ---
DATE OF PROCEDURE: 06/29/2019 SURGEON: Ruslan Jesus MD PROCEDURE: Endotracheal intubation. INDICATIONS: Refractory shock, respiratory failure. CONSENT: Emergency procedure, today morning nurse informed me, the patient's son still wants full aggressive care. MEDICATIONS: Versed 3 mg IV x1. OPERATIVE FINDINGS: Via a MAC size 3 blade, the larynx was visualized. Vocal cord was easily noted. Some secretions were suctioned up from the posterior pharynx. A 7.5 endotracheal tube was inserted at 24 cm at the lip and secured. There was carbon dioxide detection and fluctuation noted. One attempt was made for intubation. COMPLICATIONS: None. ESTIMATED BLOOD LOSS: 0 mL. SUMMARY: Successful endotracheal intubation. Ruslan Jesus MD [facility]/MODL /[id number]
[2019-06-29] MEDS ORDERED: SODIUM CHLORIDE 0.9% 250ML 200 ML IV SCH (18:36)
[2019-06-29] MEDS ORDERED: SODIUM BICARBONATE 8.4% INJ 50 ML SYR IV NR (18:41)
[2019-06-29] MEDS ORDERED: SODIUM CHLORIDE 0.9% 1000ML 1,000 ML IV NR (18:45)
--- NOTE | 2019-06-29 19:11 | Diagnostic Imaging Report ---
EXAM: ABDOMEN-1VIEW (KUB) DATE: 06/29/2019 4:27 PM INDICATION: ^sepsis, distension ^[id number] ^[id number] COMPARISON: None FINDINGS: Supine views of the abdomen show a normal distribution of air in the small and large bowel. There is moderate stool in the right colon and rectum. No specific abnormal soft tissue calcification. NG tube is present extending to the region of the gastric antrum or duodenal bulb. Vascular calcifications are seen. There is a removable vena cava filter to the right of the L4-5 level, likely near the IVC bifurcation. Vertebroplasty cement is present in the L1 vertebral body. Bones are diffusely demineralized. IMPRESSION: 1. No evidence for bowel dilatation or bowel obstruction. 2. NG tube extends to the level of the gastric antrum or possibly duodenal bulb. Signed by: Dr. Arcenio Sweet M.D. on 06/29/2019 7:08 PM
[2019-06-29] MEDS ORDERED: SODIUM BICARBONATE 8.4% 150 ML in DEXTROSE 5% 1,000 ML IV SCH (19:15)
--- NOTE | 2019-06-29 20:20 | Consultation ---
DATE OF CONSULTATION: 06/29/2019 Pulmonary Critical Care Medicine Consult REASON FOR REFERRAL: Multiorgan failure. HISTORY OF PRESENT ILLNESS: Ms. Medel is a pleasant 84-year-old female with multiorgan dysfunction. The patient admitted to [facility] on June 28, 2019. At that time, colleague Dr. Daquan Moody saw the patient and noted the patient had weakness, low blood pressure, and anemia. The patient was treated for possible sepsis with Merrem. Acute kidney injury was noted and monitoring and fluid was given at that time. The best diagnosis at that time was UTI with low-grade pyuria. The chest x-ray was clear. No armida evidence of abdominal infection. The patient was admitted to the ICU. During the night, the patient worsened and Levophed was utilized up to 30 mcg/minute. The patient eventually with more shortness of breath, eventually need to be intubated. Albumin was 1.9. PAST MEDICAL HISTORY: CHF, GERD, DVT, thyroid abnormality, diabetes, hypertension, IVC filter, atrial fibrillation, nonambulatory for 6 years, recent flu hospitalization. MEDICATIONS: Medication list reviewed per the chart record. ALLERGIES: ALBUTEROL, CODEINE, PENICILLIN . SOCIAL HISTORY: No smoking. No drinking. No drugs. Family involved. FAMILY HISTORY: Noncontributory. REVIEW OF SYSTEMS: Cannot get reliably as the patient is altered. OBJECTIVE: VITAL SIGNS : Afebrile now, vital signs noted, reviewed per the chart record and unstable. HEENT: Normocephalic, atraumatic. LUNGS: Bilateral air entry, limited evaluation due to limited effort. ABDOMEN: Mostly benign. EXTREMITIES: There is 2+ to 3+ leg edema. LABORATORY DATA: Creatinine 1.79, 3.6 potassium, 19 bicarbonate, 23 BUN, 15 white count, 28 hematocrit, 105 platelets. Albumin 1.9. The LFTs are mostly unremarkable. INR is 2.76. IMPRESSION AND PLAN: 1. Acute respiratory failure, intubated, lying. 2. Shock, presumed septic/distributive. 3. Encephalopathy, toxic metabolic. 4. Acute kidney injury, possibly anuric in evaluation. 5. Coagulopathy, the patient previously on anticoagulation, not otherwise specified. 6. Possible urinary tract infection. 7. Sepsis, under evaluation. 8. Congestive heart failure, gastroesophageal reflux disease, deep venous thrombosis, thyroid abnormality, diabetes, hypertension, IVC filter, atrial fibrillation, baseline nonambulatory/weakness. At this time, continue more large amount of fluid installation. Antibiotics have been temporarily escalated. Antibiotics to be dosed by renal function and may need to be modified. The patient was intubated earlier today emergently. Check abdominal x-ray for screening and followup cultures to get a better sense of where we need to get source control from. Place a Welch. Continue modifying pressors as needed. Greater than 30 minutes in direct care and coordination on this date. everything done as of this morning. We will follow along closely. Thank you very much for this consult. MD DENISSE Jackson/JOSE /[id number]
[2019-06-29] MEDS ORDERED: VASOPRESSIN 100 UNIT in DEXTROSE 5% 100ML 100 ML IV PRN (20:45)
[2019-06-29] MEDS: MIRTAZAPINE 15 MG TAB PO SCH (21:00)
[2019-06-29] MEDS: ROPINIROLE HCL 0.25 MG TAB PO SCH (21:00)
[2019-06-30] MEDS ORDERED: INSULIN REGULAR, HUMAN 100 UNIT/1 ML 3ML VIAL SQ SCH
--- NOTE | 2019-06-30 01:18 | NUR ---
AT 0030, PT WENT INTO [facility], WE BEGAN CPR BUT WAS UNSUCCESSFUL. DR WILLIS, DR RINCON AND THE PT'S DAUGHTER NOTIFIED. LIFE GIFT AND HOME ALSO NOTIFIED.
[2019-06-30] MEDS ORDERED: NYSTATIN 15 GM POWDER UD BTL TOP SCH (09:00)
[2019-06-30] MEDS ORDERED: BALSAM PERU/CASTOR OIL 60 GM OINT...G. TP SCH (09:00)
== END 2019-06-30 00:34 | disposition expired | DRG 871 ==
LOC: ER 23:32 → ERHOLD 06-28 02:03 → ICU 06-28 03:08
PROC: 30233N1 Transfusion of Nonautologous Red Blood Cells into Peripheral Vein, Percutaneous Approach (ICD-10-PCS; 2019-06-28)
PROC: 02HV33Z Insertion of Infusion Device into Superior Vena Cava, Percutaneous Approach (ICD-10-PCS; 2019-06-28)
PROC: B548ZZA Ultrasonography of Superior Vena Cava, Guidance (ICD-10-PCS; 2019-06-28)
PROC: 3E043XZ Introduction of Vasopressor into Central Vein, Percutaneous Approach (ICD-10-PCS; 2019-06-28)
PROC: 5A1935Z Respiratory Ventilation, Less than 24 Consecutive Hours (ICD-10-PCS; principal; 2019-06-29)
PROC: 0BH17EZ Insertion of Endotracheal Airway into Trachea, Via Natural or Artificial Opening (ICD-10-PCS; 2019-06-29)
PROC: 5A12012 Performance of Cardiac Output, Single, Manual (ICD-10-PCS; 2019-06-30)
DX: A41.9 Sepsis, unspecified organism (principal); J96.00 Acute respiratory failure, unspecified whether with hypoxia or hypercapnia; R65.21 Severe sepsis with septic shock; G93.41 Metabolic encephalopathy; N17.9 Acute kidney failure, unspecified; D62 Acute posthemorrhagic anemia; E87.1 Hypo-osmolality and hyponatremia; N30.00 Acute cystitis without hematuria; K92.2 Gastrointestinal hemorrhage, unspecified; I95.9 Hypotension, unspecified; I48.91 Unspecified atrial fibrillation; F09 Unspecified mental disorder due to known physiological condition; I11.0 Hypertensive heart disease with heart failure; I50.9 Heart failure, unspecified; E11.9 Type 2 diabetes mellitus without complications; I25.10 Atherosclerotic heart disease of native coronary artery without angina pectoris; K21.9 Gastro-esophageal reflux disease without esophagitis; E78.5 Hyperlipidemia, unspecified; Z86.718 Personal history of other venous thrombosis and embolism; M19.90 Unspecified osteoarthritis, unspecified site; Z83.3 Family history of diabetes mellitus; Z82.49 Family history of ischemic heart disease and other diseases of the circulatory system; Z88.5 Allergy status to narcotic agent; Z88.0 Allergy status to penicillin; Z88.8 Allergy status to other drugs, medicaments and biological substances; Z95.828 Presence of other vascular implants and grafts; E83.51 Hypocalcemia
CPT/HCPCS: 31500; 36415; 36556; 36600; 71045; 74018; 74470; 76937; 80053; 80162; 81001; 82270; 82550; 82553; 82805; 82948; 83605; 83735; 83880; 84484; 85014; 85018; 85025; 85610; 85730; 86850; 86900; 86920; 87040; 87086; 87186; 92950; 93005; 93306; 94002; 99284; C1751; J0171; J0610; J0696; J1580; J1630; J1817; J1940; J2001; J2060; J2250; J2405; J3370; J7030; J7040; J7042; J7050; J7070; J7121; J7799; P9016; P9047